=== PATIENT | male | born 1935 | race Caucasian/White ===

== ENCOUNTER 2018-10-20 19:36 | Observation (INO) | payer MEDICARE, BC, OTHER ==
[~2018-10-20] VITALS: Ht 177.8 cm; Wt 53.7 kg
[2018-10-20] MEDS: MORPHINE 2 MG/ML 1ML SYRINGE (J2270) IV ONE ×2 (19:45→21:15)
[2018-10-20 19:59] LABS: BASO % 0.6 % (0.0-1.0); EOS # 0.1 10^3/uL (0.0-0.50); EOS % 1.8 % (0.0-3.0); HEMATOCRIT 32.3 % (42.0-52.0); HEMOGLOBIN 10.6 g/dl (13.5-17.5); LYMPH # 1.2 10^3/uL (1.5-4.5); LYMPH % 22.9 % (24.0-44.0); MEAN CORPUSCULAR HEMOGLOBIN 30.3 pg (27.0-33.0); MEAN CORPUSCULAR HGB CONC 32.8 g/dl (32.0-36.5); MEAN CORPUSCULAR VOLUME 92.3 fl (80.0-96.0); MONO # 0.4 10^3/uL (0.0-0.8); MONO % 8.3 % (0.0-5.0); NEUTROPHILS # 3.4 10^3/uL (1.8-7.7); PLATELET COUNT, AUTOMATED 237 10^3/uL (150-450); WHITE BLOOD COUNT 5.1 10^3/uL (4.0-10.0)
[2018-10-20 20:18] LABS: BLOOD UREA NITROGEN 17 MG/DL (7-18); CARBON DIOXIDE LEVEL 26 MEQ/L (21-32); CHLORIDE LEVEL 108 MEQ/L (98-107); CREATININE FOR GFR 1.03 MG/DL (0.70-1.30); GLOMERULAR FILTRATION RATE > 60.0 (>35); GLUCOSE, FASTING 99 MG/DL (70-100); POTASSIUM SERUM 3.9 MEQ/L (3.5-5.1); SODIUM LEVEL 142 MEQ/L (136-145)
[2018-10-20] MEDS ORDERED: ISOVUE-370 76% 100ML VIAL (Q9967) As Ordered ONE (20:36)
--- NOTE | 2018-10-20 21:29 | REPVR ---
EXAM: CT Chest With Contrast EXAM DATE/TIME: 10/20/2018 8:44 PM CLINICAL HISTORY: 83 years old, male; Injury or trauma; Fall; Initial encounter; Blunt trauma (contusions or hematomas) TECHNIQUE: Axial computed tomography images of the chest with intravenous contrast. All CT scans at this facility use at least one of these dose optimization techniques: automated exposure control; mA and/or kV adjustment per patient size (includes targeted exams where dose is matched to clinical indication); or iterative reconstruction. Coronal and sagittal reformatted images were created and reviewed. CONTRAST: Contrast Material: 100 ml of ISOVUE 370; Contrast Route: IV COMPARISON: No relevant prior studies available. FINDINGS: Lungs: Minimal dependent atelectasis in the lower lobes. Pleural space: Trace right pneumothorax. Heart: Coronary artery calcifications are present. Pulmonary arteries: The main pulmonary artery measures 23 mm. Aorta: The ascending thoracic aorta measures 35 mm. Lymph nodes: Unremarkable. No enlarged lymph nodes. Bones/joints: Trace subcutaneous gas between the anterolateral right 7th and 8th ribs anterolaterally which is viewed with suspicion for a site of occult fracture or costochondral separation. Soft tissues: Unremarkable. Kidneys and ureters: There is a left renal cyst measuring up to 3.5 cm. IMPRESSION: 1. Trace right pneumothorax. 2. Trace cutaneous gas between the right 7th and 8th ribs anterolaterally may reflect an adjacent site of occult fracture. 3. Otherwise negative CT chest Electronically signed by: Karlos Underwood On 10/20/2018 21:29:23 PM
--- NOTE | 2018-10-20 21:39 | REPVR ---
EXAM: CT Abdomen and Pelvis With Contrast EXAM DATE/TIME: 10/20/2018 8:44 PM CLINICAL HISTORY: 83 years old, male; Injury or trauma; Fall; Initial encounter; Blunt; Generalized TECHNIQUE: Axial computed tomography images of the abdomen and pelvis with intravenous contrast. All CT scans at this facility use at least one of these dose optimization techniques: automated exposure control; mA and/or kV adjustment per patient size (includes targeted exams where dose is matched to clinical indication); or iterative reconstruction. Coronal and sagittal reformatted images were created and reviewed. CONTRAST: Contrast Material: 100 ml of ISOVUE 370; Contrast Route: IV COMPARISON: No relevant prior studies available. FINDINGS: Lower thorax: No acute findings. ABDOMEN: Liver: The liver and spleen are intact. No perihepatic or perisplenic fluid collections are identified. Gallbladder and bile ducts: The gallbladder is somewhat contracted with no stones. The gallbladder is somewhat contracted with no stones. Pancreas: Normal. No ductal dilation. Spleen: Normal. No splenomegaly. Adrenals: Normal. No mass. Kidneys and ureters: Nonobstructing bilateral renal calculi. There is a left renal cyst measuring up to 3.2 cm. Stomach and bowel: Normal. No obstruction. No mucosal thickening. Appendix: There are no changes of appendicitis. A normal appendix is not seen. PELVIS: Bladder: Unremarkable as visualized. Reproductive: Unremarkable as visualized. ABDOMEN and PELVIS: Intraperitoneal space: Normal. No free air. No significant fluid collection. Bones/joints: Degenerative interspace narrowing at L4-L5. Displaced fracture of the right 10th rib posteriorly with minimal adjacent foci of gas suggesting an acute process. Trace gas between the right 7th and 8th ribs anterolaterally. Soft tissues: Unremarkable. Vasculature: There is mild calcification of the abdominal aorta with extension into the iliac arteries. Lymph nodes: Normal. No enlarged lymph nodes. IMPRESSION: 1. Nonobstructing bilateral renal calculi. 2. Displaced fracture of the right 10th rib posteriorly with minimal adjacent foci of gas suggesting an acute process. There is minimal gas between the right 7th and 8th ribs anterolaterally suggesting a fracture in the area but none is definitely seen. 3. Otherwise negative CT abdomen/pelvis. The organs are intact and there is no free fluid. Electronically signed by: Karlos Underwood On 10/20/2018 21:38:57 PM
[2018-10-20] MEDS ORDERED: ENTA1TAB PO (22:23)
[2018-10-20] MEDS ORDERED: CARB25TA9 PO (22:23)
[2018-10-20] MEDS ORDERED: ESCI20TA PO (22:23)
[2018-10-20] MEDS ORDERED: ALPR0.5T3 PO (22:23)
[2018-10-20] MEDS ORDERED: NORCO, ANEXSIA 5/325MG TABLET (HYDROcodone/ACETAMINOPHEN) PO PRN ×2 (22:45)
[2018-10-20] MEDS ORDERED: IPRATROPIUM 0.5MG/ALBUTEROL 2.5MG INH SOL UD 3ML (DUONEB)(J7620) NEB PRN (22:45)
[2018-10-20] MEDS ORDERED: ONDANSETRON 4MG/2ML VIAL (J2405) IV PRN (22:45)
[2018-10-20] MEDS ORDERED: QUET1TAB7 PO (23:11)
[2018-10-20] MEDS: MORPHINE 4 MG/ML 1ML VIAL/SYRINGE (J2270) IV PRN (23:32)
[2018-10-20] MEDS: KETOROLAC 30 MG/ML VIAL (J1885) IV SCH (23:32)
[2018-10-21] MEDS: D5W/LR 1,000 ML IV SCH ×2 (01:02→06:18)
[2018-10-21 01:32] VITALS: BP 145/67
[2018-10-21] MEDS: IPRATROPIUM 0.5MG/ALBUTEROL 2.5MG INH SOL UD 3ML (DUONEB)(J7620) NEB SCH ×2 (03:28→08:11)
[2018-10-21 04:00] VITALS: BP 164/77
[2018-10-21 05:14] LABS: MEAN CORPUSCULAR HEMOGLOBIN 30.5 pg (27.0-33.0); MEAN CORPUSCULAR HGB CONC 33.3 g/dl (32.0-36.5); MEAN CORPUSCULAR VOLUME 91.5 fl (80.0-96.0); PLATELET COUNT, AUTOMATED 226 10^3/uL (150-450); RED BLOOD COUNT 3.28 10^6/uL (4.30-6.10); WHITE BLOOD COUNT 4.4 10^3/uL (4.0-10.0)
[2018-10-21 05:36] LABS: BLOOD UREA NITROGEN 16 MG/DL (7-18); CALCIUM LEVEL 7.8 MG/DL (8.8-10.2); CARBON DIOXIDE LEVEL 25 MEQ/L (21-32); CHLORIDE LEVEL 109 MEQ/L (98-107); CREATININE FOR GFR 1.03 MG/DL (0.70-1.30); GLOMERULAR FILTRATION RATE > 60.0 (>35); GLUCOSE, FASTING 94 MG/DL (70-100); POTASSIUM SERUM 3.6 MEQ/L (3.5-5.1); SODIUM LEVEL 142 MEQ/L (136-145)
[2018-10-21] MEDS: KETOROLAC 30 MG/ML VIAL (J1885) IV SCH ×2 (06:18→11:55)
--- NOTE | 2018-10-21 07:37 | ECGEPIP ---
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
--- NOTE | 2018-10-21 07:54 | REP ---
Left ankle four views : There is no fracture or dislocation. Mineralization and joint spaces are normal. There are no calcifications or foreign bodies. Impression: Negative left ankle . Electronically Signed by Vahe Zurita MD 10/21/2018 07:45 A
--- NOTE | 2018-10-21 07:55 | REP ---
Left foot four views : There is no fracture or dislocation. Mineralization and joint spaces are normal. There are no calcifications or foreign bodies. Impression: Negative ? Left foot Electronically Signed by Vahe Zurita MD 10/21/2018 07:46 A
[2018-10-21 08:00] VITALS: BP 172/74
--- NOTE | 2018-10-21 08:18 | REP ---
Chest a sitting AP and lateral views: Comparison is the chest CT of 10/20/2018. On the comparison CT there is a trace of pneumothorax anteriorly on the right. This is not visible on the AP and lateral plain films today. Lung rodriguez otherwise clear. Cardiac size is upper normal. The amna and mediastinum are unremarkable. There is thoracic scoliosis convex right at the lower thoracic level. Impression: No visible pneumothorax on plain films. Lung rodriguez are clear. Scoliosis. Electronically Signed by Vahe Zurita MD 10/21/2018 08:09 A
[2018-10-21] MEDS: MORPHINE 4 MG/ML 1ML VIAL/SYRINGE (J2270) IV PRN (08:30)
[2018-10-21] MEDS ORDERED: ENTACAPONE 200MG TABLET (COMTAN) PO SCH (09:00)
[2018-10-21] MEDS ORDERED: SINEMET 25-100 MG TAB PO SCH (09:00)
[2018-10-21] MEDS ORDERED: PANTOPRAZOLE 40MG TAB (PROTONIX) PO SCH (09:00)
[2018-10-21] MEDS ORDERED: ULTR37.54 PO (12:15)
--- NOTE | 2018-10-21 13:18 | HPE ---
DATE OF ADMISSION: 10/20/2018 REASON FOR ADMISSION: Fall with rib fracture and rib pain and pneumothorax. BRIEF HISTORY OF PRESENT ILLNESS: The patient is an 83-year-old gentleman with Parkinson's disease who was unsteady on his feet, fell against the wall and essentially it was the corner edge of the wall hit him on the side and developed significant pain and discomfort and immediate bruising. He did have some pleuritic-type chest pain, was brought to the emergency room for further workup and evaluation. Presented to the emergency room, was not hypotensive, was not significantly short of breath, mostly complained of pain and discomfort in that area. He was answering questions appropriately. He had extensive evaluation and workup which revealed a small right pneumothorax, was tiny sliver of air and a little bit of air next to the 7th and 8th ribs anterolaterally. He had a CT scan of the abdomen and pelvis that revealed a possible fracture. Foot x-rays were performed and revealed no evidence of abnormality. Otherwise, workup was negative. PAST MEDICAL HISTORY: Significant for: History of Parkinson's disease. MEDICATIONS: Include the following: - alprazolam 0.5 mg t.i.d. p.r.n. anxiety - entacapone 200 mg p.o. q.i.d. - carbidopa/levodopa 25/100 mg 2 tablets p.o. q.i.d. - quetiapine fumarate 25 mg p.o. q.h.s. PHYSICAL EXAMINATION: Reveals a very cachectic appearing 83-year-old male who looks stated age. HEENT is unremarkable. Neck supple without adenopathy. Lungs were clear to auscultation without crackles, wheezes or rhonchi. Heart is regular. Abdomen is soft, nontender, nondistended. No guarding, rebound or peritoneal signs are appreciated. Extremities are warm, well-perfused. I am not seeing any bruising or ecchymosis on his lower extremities. His chest wall does have some ecchymosis on this area and is tender to palpation on the lateral chest wall. IMPRESSION AND PLAN: The patient has a chest wall contusion. There is some question whether he has a fracture or not. His chest CT says that he does not have one. However, this is seen on his abdominal x-ray. At this point, he is acting as though he may have a contusion or possibly a fracture, but in general pain control and respiratory supplementation with oxygen etc. is warranted. Will see how he does overnight. If he gets comfortable we will be able to discharge him to home. At a follow-up visit it is reasonable to obtain a follow-up x-ray after discharge. Otherwise, at this point will see how he does overnight with some pain control.
--- NOTE | 2018-10-21 13:29 | IPN ---
DATE: 10/21/2018 The patient overall has done very well overnight. He has had decreasing pain, discomfort and problems. He has had no significant other complaints overnight and has been tolerating a regular diet this morning. No evidence of pneumothorax was appreciated on followup films this morning. There is suggestion that he has no progression of his pneumothorax. More importantly, there are no comments concerning rib fractures on this study here today. If the patient has ongoing pain going on for 4-6 weeks we may consider reevaluation to see if this truly was a rib fracture and it may take longer to heal, but otherwise I anticipate he should have some continued improvement if was a bruise/contusion of the rib/chest well itself. From his standpoint, I have discussed with him at length and his family that he should be discharged home today with pain control being Tylenol or tramadol and have him follow up with his primary care provider in the next 2-3 weeks. Otherwise, he will continue on his regular medications at home as previously, his alprazolam, carbidopa levodopa, Entacapone and quetiapine fumarate.
== END 2018-10-21 13:20 | disposition home or self-care (01) ==
LOC: M ED 19:36 → M ED INP 22:37 → M ICU 10-21 01:20
PROVIDERS: ADMIT Surgery; ATTEND Surgery
DX: J93.83 Other pneumothorax (principal); S20.219A Contusion of unspecified front wall of thorax, initial encounter; W19.XXXA Unspecified fall, initial encounter; G20 Parkinson's disease; M25.572 Pain in left ankle and joints of left foot; Z79.899 Other long term (current) drug therapy; Y92.9 Unspecified place or not applicable; Z91.81 History of falling; Y93.9 Activity, unspecified; Y99.9 Unspecified external cause status
CPT/HCPCS: 71046; 71260; 73610; 73630; 74177; 80048; 85025; 85027; 93005; 93041; 94640; 94760; 96374; 96375; 96376; 99285; G0378; J1885; J2270; Q9967

== ENCOUNTER 2019-07-22 10:30 | Inpatient (IN) | payer MEDICARE, BC, OTHER ==
[~2019-07-22] VITALS: Ht 180.3 cm; Wt 54.1 kg
[~2019-07-22 10:30] MED LIST: ALPR0.5T3 PO; CARB25TA9 PO; ENTA1TAB PO; ESCI20TA PO; QUET1TAB7 PO; ULTR37.54 PO
[2019-07-22] MEDS ORDERED: CARB25TA12 PO (10:42)
[2019-07-22] MEDS ORDERED: CARB1TAB97 PO (10:42)
[2019-07-22] MEDS ORDERED: ESCI20TA PO (10:42)
[2019-07-22] MEDS ORDERED: MORPHINE 2 MG/ML 1ML VIAL (J2270) IV ONE ×2 (11:00→15:00)
--- NOTE | 2019-07-22 12:15 | REP ---
Four views lumbar spine: 07/22/2019. Indication: Lumbar trauma. Comparison: 10/20/2018 . Findings: There is a predominantly central compression deformity of L4 with minimal loss of craniocaudal height. The osseous structures are diffusely osteopenic. No additional fractures are present. Vertebral body alignment is within anatomical limits. Impression: L4 compression deformity of unknown chronicity. Please correlate with exam. Electronically Signed by Michael Levin DO 07/22/2019 12:07 P
--- NOTE | 2019-07-22 12:26 | REP ---
PELVIS LEFT HIP: Three views. HISTORY: Injury in a fall. FINDINGS: There is diffuse osteopenia. There is a subtle cortical disruption of the medial wall of the pelvis consistent with a nondisplaced superior pubic ramus fracture at the acetabular margin. There is questionable buckling of the superior pubic ramus medially as well. There is some overriding at the inferior pubic ramus consistent with an inferior pubic ramus fracture. No hip fracture is seen. The femoral head is smooth and rounded. There is subtle buckling of the sacrum alar lines on the left question left sacral fracture. IMPRESSION: Suspect nondisplaced fracture of the superior pubic ramus at the acetabular margin. Probable inferior pubic ramus fracture and left lateral sacral fracture . Diffuse osteopenia. No femur fracture seen. Consider pelvic CT. Electronically Signed by Wero Ndiaye MD 07/22/2019 01:05 P
--- NOTE | 2019-07-22 12:54 | REP ---
CT lumbar spine: 08/08/2019. Indication: Lumbar spine trauma. Comparison: 11/06/2018. Technique: Unenhanced axial CT images of the lumbar spine were performed with coronal and sagittal reconstructions provided. Findings: There is no acute fracture, subluxation or dislocation. Disc space narrowing and vacuum disc phenomenon are present at L4/L5 and L5/S1. There is no hemorrhage or additional acute post traumatic sequelae within the spinal canal. No severe areas of spinal canal narrowing are detected by this technique. Multiple bilateral kilo signal renal calculi are present with normal-appearing ureters. Aortoiliac atherosclerosis is present. Impression: No acute osseous injury of the lumbar spine. Electronically Signed by Michael Levin DO 07/22/2019 12:45 P
--- NOTE | 2019-07-22 14:49 | REP ---
CT OF THE BONY PELVIS: REASON: Pain after trauma. The exam was performed without intravenous contrast administration. There are two incomplete fractures involving the left superior pubic ramus. One is at the base near the acetabulum affecting the superior cortex and the other is involving the superior cortex more distally just proximal to the pubic symphysis. The left inferior pubic ramus is also fractured. In the inferior anterior mid left sacrum, there is a slight cortical irregularity. Degenerative change is seen involving the hips, spine, and sacroiliac joints. The bones are demineralized. IMPRESSION: 1. Left hemipelvic fractures and other findings as described above. 2. Slight cortical irregularity left sacrum as described above, insufficient to diagnosis definite fracture at this time. Consider MRI. Electronically Signed by Arcadio Whitley DO 07/22/2019 02:57 P
[2019-07-22] MEDS ORDERED: ENTA1TAB PO (15:06)
[2019-07-22 15:20] LABS: BASO % 0.5 % (0.0-1.0); EOS # 0.2 10^3/uL (0.0-0.5); LYMPH # 0.8 10^3/uL (1.5-5.0); LYMPH % 13.1 % (24.0-44.0); MEAN CORPUSCULAR HEMOGLOBIN 30.1 pg (27.0-33.0); MEAN CORPUSCULAR HGB CONC 33.3 g/dl (32.0-36.5); MEAN CORPUSCULAR VOLUME 90.4 fl (80.0-96.0); MONO # 0.6 10^3/uL (0.0-0.8); MONO % 9.6 % (0.0-5.0); NEUTROPHILS # 4.2 10^3/uL (1.5-8.5); NEUTROPHILS % 73.5 % (36.0-66.0); PLATELET COUNT, AUTOMATED 196 10^3/uL (150-450); RED BLOOD COUNT 3.32 10^6/uL (4.30-6.10); WHITE BLOOD COUNT 5.7 10^3/uL (4.0-10.0)
[2019-07-22 15:49] LABS: ALBUMIN 3.5 GM/DL (3.2-5.2); ALT/SGPT 10 U/L (12-78); BILIRUBIN,DIRECT 0.2 MG/DL (0.0-0.2); BILIRUBIN,TOTAL 0.8 MG/DL (0.2-1.0); BLOOD UREA NITROGEN 16 MG/DL (7-18); CALCIUM LEVEL 8.2 MG/DL (8.8-10.2); CARBON DIOXIDE LEVEL 22 MEQ/L (21-32); CHLORIDE LEVEL 111 MEQ/L (98-107); CREATININE FOR GFR 0.96 MG/DL (0.70-1.30); GLOMERULAR FILTRATION RATE > 60.0 (>35); GLUCOSE, FASTING 99 MG/DL (70-100); POTASSIUM SERUM 3.4 MEQ/L (3.5-5.1); SODIUM LEVEL 141 MEQ/L (136-145)
[2019-07-22] MEDS ORDERED: SINEMET 25-250 TABLET PO SCH (16:00)
[2019-07-22] MEDS ORDERED: PILL CUTTER 1 EACH XX PRN (16:15)
--- NOTE | 2019-07-22 16:25 | HPEPDOC ---
[facility] Medical History & Physical Date of Admission Jul 22, 2019 Date of Service: Jul 22, 2019 History and Physical CHIEF COMPLAINT: FALL HISTORY OF PRESENT ILLNESS: 84 yo male with PMHx Parkinsons presents for lower back pain after fall. Patient states he fell down two days ago, and has had worsening lower back pain since then. He states he has had a few falls in the past month. He is unclear regarding the details of his fall. He is a poor historian. He denies chest pain, shortness of breath, headaches, changes in vi ba, abdominal pain, N/V/D. PAST MEDICAL HISTORY: #Parkinsons ALLERGIES: Please see below. REVIEW OF SYSTEMS: Negative except as per HPI. HOME MEDICATIONS: Please see below. PHYSICAL EXAMINATION: VITAL SIGNS: See below GENERAL APPEARANCE: elderly, frail HEENT: NC/AT, EOMI, bitemporal wasting CARDIOVASCULAR: +S1S2, systolic murmur LUNGS: CTA B/L ABDOMEN: soft, NT, +BS EXTREMITIES: no edema NEUROLOGICAL: no gross focal deficits PSYCHIATRIC: oriented to person, oriented generally to place ([place]) LABORATORY DATA: See below. MICROBIOLOGY: Please see below. ASSESSMENT: 84 yo male with PMHx Parkinson's disease for falls of unclear etiology, found to have pubic rami fracture #falls - telemetry monitoring - echocardiogram - check orthostatics #pubic rami fracture - ortho consultation #Parkinsons - continue home medications #DVT prophylaxis - mechanical Dispo: ortho c/s pending, possible MRI; PT/OT, PFS Vital Signs Vital Signs Date Time Temp Pulse Resp B/P (MAP) Pulse Ox O2 Delivery O2 Flow Rate FiO2 07/22/19 15:05 18 07/22/19 10:47 98.8 77 156/74 (101) 99 Room Air Laboratory Data Labs 24H Laboratory Tests 2 07/22/19 15:08: Immature Granulocyte % (Auto) 0.3, Neutrophils (%) (Auto) 73.5H, Lymphocytes (%) (Auto) 13.1L, Monocytes (%) (Auto) 9.6H, Eosinophils (%) (Auto) 3.0, Basophils (%) (Auto) 0.5, Neutrophils # (Auto) 4.2, Lymphocytes # (Auto) 0.8L, Monocytes # (Auto) 0.6, Eosinophils # (Auto) 0.2, Basophils # (Auto) 0.0, Nucleated Red Blood Cells % (auto) 0.0, Anion Gap 8, Glomerular Filtration Rate > 60.0, Calcium Level 8.2L, Total Bilirubin 0.8, Direct Bilirubin 0.2, Aspartate Amino Transf (AST/SGOT) 23, Alanine Aminotransferase (ALT/SGPT) 10L, Alkaline Phosphatase 94, Total Protein 7.0, Albumin 3.5, Albumin/Globulin Ratio 1.00 CBC/BMP Laboratory Tests 07/22/19 15:08 Home Medications Scheduled Carbidopa/Levodopa (Carbidopa-Levodopa 25-250 Tab) 1 Each Tablet, 0.5 TAB PO TID Carbidopa/Levodopa (Carbidopa-Levo ER 50-200 Tab) 1 Each Tablet.er, 1 TAB PO QHS Entacapone (Entacapone) 200 Mg Tablet, 200 MG PO QID Escitalopram Oxalate (Escitalopram Oxalate) 20 Mg Tablet, 20 MG PO DAILY Quetiapine Fumarate (Quetiapine Fumarate) 25 Mg Tab, 25 MG PO QHS Scheduled PRN Alprazolam (Alprazolam) 0.5 Mg Tab, 0.5 MG PO TID PRN for ANXIETY Allergies Coded Allergies: No Known Allergies (Unverified , 10/20/18) A-FIB/CHADSVASC A-FIB History Current/History of A-Fib/PAF?: No DEDE BARROW MD Jul 22, 2019 16:24
[2019-07-22 16:45] LABS: MAGNESIUM LEVEL 1.8 MG/DL (1.8-2.4)
[2019-07-22] MEDS: SINEMET 25-250 TABLET PO SCH (17:00)
[2019-07-22] MEDS ORDERED: POTASSIUM CHLORIDE 10 MEQ SR TABLET PO ONE (17:00)
--- NOTE | 2019-07-22 20:20 | ECGEPIP ---
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 Order Number: [id number] Reading MD: Ranjana Soto Measurements Intervals [place] Rate: 63 P: 62 NE: 122 QRS: 11 QRSD: 166 T: 52 QT: 492 QTc: 504 Interpretive Statements SINUS RHYTHM LEFT BUNDLE BRANCH BLOCK INCREASED RATE 10/20/18 Electronically Signed on 07-22-2019 20:20:02 EST by Ranjana Soto
[2019-07-22 21:00] VITALS: BP 151/79
[2019-07-22] MEDS: QUEtiapine FUMARATE 25 MG TAB PO SCH (22:30)
[2019-07-22] MEDS: ENTACAPONE 200MG TABLET (COMTAN) PO SCH (22:31)
[2019-07-22] MEDS: SINEMET**CR** 25/100 TABCR PO SCH (22:31)
[2019-07-23] MEDS: ENTACAPONE 200MG TABLET (COMTAN) PO SCH ×5 (00:28→20:05)
[2019-07-23] MEDS: ALPRAZolam 0.5 MG TAB PO PRN ×2 (04:38→12:48)
[2019-07-23 06:00] VITALS: BP 146/75
[2019-07-23 06:28] LABS: HEMATOCRIT 30.5 % (42.0-52.0); HEMOGLOBIN 9.7 g/dl (13.5-17.5); MEAN CORPUSCULAR HEMOGLOBIN 29.4 pg (27.0-33.0); MEAN CORPUSCULAR HGB CONC 31.8 g/dl (32.0-36.5); MEAN CORPUSCULAR VOLUME 92.4 fl (80.0-96.0); PLATELET COUNT, AUTOMATED 197 10^3/uL (150-450); WHITE BLOOD COUNT 5.2 10^3/uL (4.0-10.0)
[2019-07-23 06:59] LABS: ALBUMIN 3.3 GM/DL (3.2-5.2); ALT/SGPT < 6 U/L (12-78); BILIRUBIN,TOTAL 1.3 MG/DL (0.2-1.0); BLOOD UREA NITROGEN 17 MG/DL (7-18); CALCIUM LEVEL 8.3 MG/DL (8.8-10.2); CARBON DIOXIDE LEVEL 22 MEQ/L (21-32); CHLORIDE LEVEL 108 MEQ/L (98-107); CREATININE FOR GFR 1.19 MG/DL (0.70-1.30); GLOMERULAR FILTRATION RATE > 60.0 (>35); GLUCOSE, FASTING 82 MG/DL (70-100); MAGNESIUM LEVEL 1.9 MG/DL (1.8-2.4); POTASSIUM SERUM 3.2 MEQ/L (3.5-5.1); SODIUM LEVEL 139 MEQ/L (136-145); TOTAL PROTEIN 7.1 GM/DL (6.4-8.2)
[2019-07-23] MEDS ORDERED: POTASSIUM CHLORIDE 10 MEQ SR TABLET PO ONE (08:00)
[2019-07-23] MEDS: ESCITALOPRAM OXALATE 10 MG TAB (LEXAPRO) PO SCH (08:17)
[2019-07-23] MEDS: SINEMET 25-250 TABLET PO SCH ×3 (08:17→17:13)
--- NOTE | 2019-07-23 11:45 | CR ---
DATE OF CONSULTATION: 07/23/2019 CHIEF COMPLAINT: Left hip and left buttock pain. HISTORY OF PRESENT ILLNESS: He fell around the 11th. He fell at home. He was near the door. He lives near [place]. He lives with his . He suffers from Parkinson disease. He was brought to the emergency room (ER) where he was evaluated with x-rays, which reflect pubic ramus fractures on the left and suggestion of a sacral fracture nondisplaced, as well as a CT scan that reflected fractures of the pubic ramus superior and inferior as well as cortical irregularity in the sacrum on the left that is likely a nondisplaced fracture there as well in my opinion of both of those reviewed. PAST MEDICAL HISTORY: Includes Parkinson's condition. REVIEW OF SYSTEMS: Is negative except for HPI. He is not complaining of chest pain, shortness of breath, abdominal pain, headaches, change in neurologic status. MEDICATIONS: At home include: - carbidopa levodopa - entacapone - citalopram - quetiapine - alprazolam as needed ALLERGIES: NO KNOWN DRUG ALLERGIES. PHYSICAL EXAMINATION: He is alert, oriented and cooperative. He speaks slowly, but he seems to be well oriented. He talks about his Parkinson disease causing to have some troubles. He is not short of breath. His abdomen is nondistended. Left lower extremity he has some discomfort when trying to roll in the bed. He does not have discomfort with internal and external rotation of the hip itself. Calves soft. Knees no effusion. Leg lengths equal at heel. No peripheral edema. IMPRESSION: 84-year-old with superior and inferior pubic ramus fractures as well as a nondisplaced sacral fracture likely. RECOMMENDATIONS: Mobilization as tolerated with physical therapy. Will require assistive devices. May require consideration for subacute rehabilitation if he is not able to be mobilized over the next couple of days. I talked to the patient about his prognosis, this fracture should heal over time and I anticipate that his pain will improve over the course the next several days significantly. Followup could be in the office in 3 or 4 weeks, sooner if he has got issues.
[2019-07-23] MEDS ORDERED: NS 1,000 ML IV SCH (12:30)
[2019-07-23 14:00] VITALS: BP 144/73
--- NOTE | 2019-07-23 16:09 | IPNPDOC ---
Text Note Date of Service The patient was seen on 07/23/19. NOTE S: Pt examined at bedside. Able to verbalize he fell at home due to losing balance and is having pain at site of pubic fracture. Denies any other symptoms at time of fall: no chest pain, lightheadedness, dizziness, shortness of breath, blurred vision, or loss of consciousness. Denies any other complaints. No issues overnight. No f/c/n/v/abd pain/paresthesia/blood loss. PE: Vitals: see below General exam: A&Ox2- aware of self & location, wrong yr & month, NAD, resting comfortably, speaking full sentences, poor hygiene HEENT: NCAT, EOMI, poor dentition inferiorly, dry mucous membrane, bitemporal wasting Cardiac: distant sounds, RRR, normal S1 & S2, pansystolic murmur Respiratory: CTAB, no w/r/r. No excess muscle use/respiratory distress Abdomen: soft, NT, ND, hypoactive bowel sounds, ribs extruding Extremity: diminished pulses throughout in UE & LE, slightly better on right side of body, trace LE edema, no calf tenderness or swelling Skin: [place], warm, dry, no visible rash. Healing scabs on head and arms MSK: tender to pelvic area. Muscle loss throughout Neuro: mumbled speech with limited history given baseline Parkinson's dementia A/P: 84 yo M with Parkinson's Dementia and recurrent falls presents for another fall from losing balance and found to have fractures of pubic rami & left lateral sacrum with diffuse osteopenia and compression deformity. Recurrent Falls * per pt, he loses his balance often * work with PT. PFS for possible placement * on fall precautions * less likely cardiac: echo, tele Pathological fragility fractures * Imaging with diffuse osteopenia with fracture of pubic rami and left lateral sacrum, along with L4 compression deformity and left hemipelvic fracture s/p fall * On fall precautions. Orthopedic consulted, appreciate input Hypokalemia * supplemented Malnourishment * BMI 16 with muscle wasting * encourage po intake & high protein * IV fluid hydration Depression/anxiety * Continue home Lexapr, Xanax, Seroquel Parkinson's dementia * Continue Sinemet and Comtan DVT ppx: mechanical DISPO: PT/PFS and Ortho. VS,Fishbone, I+O VS, Fishbone, I+O Laboratory Tests 07/22/19 15:08 07/23/19 05:54 07/23/19 05:55 Vital Signs Date Time Temp Pulse Resp B/P (MAP) Pulse Ox O2 Delivery O2 Flow Rate FiO2 07/23/19 06:00 98.2 85 16 146/75 (98) 97 Room Air I&O- Last 24 Hours up to 6 AM 07/23/19 06:00 Intake Total 0 ml Balance 0 ml GME ATTESTATION GME ATTESTATION My faculty preceptor for this patient encounter was physically present during the encounter and was fully available. All aspects of the patient interview, examination, medical decision making process, and medical care plan development were reviewed and approved by the faculty preceptor. The faculty preceptor is aware and concurs with the plan as stated in the body of this note and will attest to such by his/her cosignature. KELLI BENAVIDEZ DO Jul 23, 2019 13:00
[2019-07-23] MEDS: ACETAMINOPHEN TAB 650MG DOSE (2X325MG) PO PRN (17:13)
[2019-07-23] MEDS: SINEMET**CR** 25/100 TABCR PO SCH (20:05)
[2019-07-23] MEDS: QUEtiapine FUMARATE 25 MG TAB PO SCH (20:05)
[2019-07-23 22:00] VITALS: BP 132/63
[2019-07-24 06:00] VITALS: BP 138/66
[2019-07-24 06:43] LABS: HEMATOCRIT 28.5 % (42.0-52.0); HEMOGLOBIN 9.4 g/dl (13.5-17.5); MEAN CORPUSCULAR VOLUME 91.1 fl (80.0-96.0); PLATELET COUNT, AUTOMATED 191 10^3/uL (150-450); RED BLOOD COUNT 3.13 10^6/uL (4.30-6.10); WHITE BLOOD COUNT 4.5 10^3/uL (4.0-10.0)
[2019-07-24 07:00] LABS: BLOOD UREA NITROGEN 19 MG/DL (7-18); CALCIUM LEVEL 8.3 MG/DL (8.8-10.2); CARBON DIOXIDE LEVEL 22 MEQ/L (21-32); CHLORIDE LEVEL 112 MEQ/L (98-107); CREATININE FOR GFR 1.03 MG/DL (0.70-1.30); GLOMERULAR FILTRATION RATE > 60.0 (>35); GLUCOSE, FASTING 81 MG/DL (70-100); POTASSIUM SERUM 3.8 MEQ/L (3.5-5.1); SODIUM LEVEL 141 MEQ/L (136-145)
--- NOTE | 2019-07-24 07:20 | ECHO ---
DATE OF STUDY: 07/23/2019 REFERRING PHYSICIAN: Dr. Carrillo INDICATION: Syncope. HEIGHT: 180 cm. WEIGHT: 54 k. DIMENSIONS: IVS: 0.9 LV: 4.6 LVPW: 0.9 LA: 4.2 Aorta: 2.8 Mitral E wave velocity: 46 A wave: 89 E prime septal: 5.2 E prime lateral: 3.7 FINDINGS: The study is of fair technical quality. The patient is in sinus rhythm with wide QRS complex. Left ventricle is normal size and overall has probably normal contractility. There seems to be a subtle septal wall motion abnormality, I suspect due to underlying conductive system disease. The right ventricle is normal size and systolic function. The left atrium is at least mildly enlarged. The right atrium is probably normal size. The aortic valve is sclerotic, but there is adequate separation of aortic cusps. There are also degenerative abnormalities of the mitral valve with prominent mitral annular calcifications. The tricuspid valve appears normal. The pulmonic valve was not well seen. No pericardial effusion is present. The inferior vena cava was not visualized. The aortic root is normal. The aortic arch and abdominal aorta were not well seen. Doppler interrogation reveals no significant aortic stenosis or insufficiency. Same applies for the mitral valve. There is trace tricuspid insufficiency. Calculated pulmonary artery pressure is likely mildly increased assuming normal central venous pressure. Mitral inflow pattern and tissue Doppler imaging of the mitral annulus revealed grade 1 diastolic dysfunction. CONCLUSIONS: 1. Study is of fair technical quality. 2. Normal LV size with probably normal LV systolic function and grade 1 diastolic dysfunction. 3. Aortic sclerosis, but no significant stenosis. 4. Unable to estimate central venous pressure, but at least mild pulmonary hypertension. COMMENT: Subacute bacterial endocarditis is not recommended. The study does not provide obvious explanation for syncopal event.
[2019-07-24] MEDS: SINEMET 25-250 TABLET PO SCH ×3 (07:28→17:12)
[2019-07-24] MEDS: ESCITALOPRAM OXALATE 10 MG TAB (LEXAPRO) PO SCH (07:29)
[2019-07-24] MEDS: ENTACAPONE 200MG TABLET (COMTAN) PO SCH ×4 (07:29→21:02)
[2019-07-24] MEDS: ALPRAZolam 0.5 MG TAB PO PRN ×2 (07:36→14:54)
--- NOTE | 2019-07-24 11:06 | IPNPDOC ---
Text Note Date of Service The patient was seen on 07/24/19. NOTE Subjective: Patient seen and examined at bedside. No acute overnight events reported, no new medical complaints this morning. Objective: Vitals: see below General: NAD, lying comfortably in bed HEENT: NC/AT, EOMI, poor dentition, bitemporal wasting Lungs: CTA B/L HearT: +S1S2, RRR, systolic murmur Abd: soft, NT, +BS Ext: no edema Neuro: mumbled speech A/P: 84 yo M with Parkinson's Dementia and recurrent falls presents for another fall from losing balance and found to have fractures of pubic rami & left lateral sacrum with diffuse osteopenia and compression deformity. #Recurrent Falls * per pt, he loses his balance often * work with PT. PFS for possible placement * on fall precautions * less likely cardiac: no events on tele #Pathological fragility fractures * Imaging with diffuse osteopenia with fracture of pubic rami and left lateral sacrum, along with L4 compression deformity and left hemipelvic fracture s/p fall * On fall precautions. Orthopedic consulted, appreciate input #Hypokalemia * supplemented #Malnourishment * BMI 16 with muscle wasting * encourage po intake & high protein * IV fluid hydration #Depression/anxiety * Continue home Lexapr, Xanax, Seroquel #Parkinson's dementia * Continue Sinemet and Comtan #DVT ppx: mechanical DISPO: PT/PFS, possible placement VS,Fishbone, I+O VS, Fishbone, I+O Laboratory Tests 07/24/19 05:55 Vital Signs Date Time Temp Pulse Resp B/P (MAP) Pulse Ox O2 Delivery O2 Flow Rate FiO2 07/24/19 06:00 97.5 62 16 138/66 (90) 97 Room Air I&O- Last 24 Hours up to 6 AM 07/24/19 06:00 Intake Total 1720 ml Output Total 400 ml Balance 1320 ml DEDE BARROW MD Jul 24, 2019 11:05
[2019-07-24] MEDS: ACETAMINOPHEN TAB 650MG DOSE (2X325MG) PO PRN (12:11)
[2019-07-24 14:00] VITALS: BP_SYST 125; BP_SYST 129; BP_SYST 131; BP_SYST 134; BP_DIAS 71; BP_DIAS 73; BP_DIAS 74
[2019-07-24] MEDS: NAPROXEN 250 MG TAB PO PRN (15:08)
[2019-07-24] MEDS: SINEMET**CR** 25/100 TABCR PO SCH (21:02)
[2019-07-24] MEDS: QUEtiapine FUMARATE 25 MG TAB PO SCH (21:02)
[2019-07-24 22:00] VITALS: BP 139/73
[2019-07-25 06:00] VITALS: BP 140/76
[2019-07-25 06:05] VITALS: BP 146/75
[2019-07-25 06:10] VITALS: BP 156/76
[2019-07-25 06:23] LABS: HEMATOCRIT 30.9 % (42.0-52.0); MEAN CORPUSCULAR HEMOGLOBIN 29.7 pg (27.0-33.0); MEAN CORPUSCULAR HGB CONC 32.4 g/dl (32.0-36.5); MEAN CORPUSCULAR VOLUME 91.7 fl (80.0-96.0); PLATELET COUNT, AUTOMATED 223 10^3/uL (150-450); RED BLOOD COUNT 3.37 10^6/uL (4.30-6.10); WHITE BLOOD COUNT 4.1 10^3/uL (4.0-10.0)
[2019-07-25 06:53] LABS: ALBUMIN 3.2 GM/DL (3.2-5.2); ALT/SGPT 11 U/L (12-78); BILIRUBIN,DIRECT 0.2 MG/DL (0.0-0.2); BILIRUBIN,TOTAL 0.8 MG/DL (0.2-1.0); BLOOD UREA NITROGEN 19 MG/DL (7-18); CALCIUM LEVEL 8.3 MG/DL (8.8-10.2); CARBON DIOXIDE LEVEL 24 MEQ/L (21-32); CHLORIDE LEVEL 110 MEQ/L (98-107); CREATININE FOR GFR 1.01 MG/DL (0.70-1.30); GLOMERULAR FILTRATION RATE > 60.0 (>35); GLUCOSE, FASTING 88 MG/DL (70-100); POTASSIUM SERUM 3.8 MEQ/L (3.5-5.1); SODIUM LEVEL 141 MEQ/L (136-145)
[2019-07-25] MEDS: NAPROXEN 250 MG TAB PO PRN (08:48)
[2019-07-25] MEDS: ESCITALOPRAM OXALATE 10 MG TAB (LEXAPRO) PO SCH (08:48)
[2019-07-25] MEDS: ENTACAPONE 200MG TABLET (COMTAN) PO SCH ×2 (08:48→13:30)
[2019-07-25] MEDS: ALPRAZolam 0.5 MG TAB PO PRN (08:49)
[2019-07-25] MEDS: SINEMET 25-250 TABLET PO SCH ×2 (08:49→13:30)
[2019-07-25] MEDS: ACETAMINOPHEN TAB 650MG DOSE (2X325MG) PO PRN (13:30)
[2019-07-25] MEDS ORDERED: NAPR250T4 PO (14:07)
--- NOTE | 2019-07-25 14:15 | DS.PDOC ---
Discharge Summary General Date of Admission Jul 22, 2019 at 16:16 Date of Discharge 07/25/19 Discharge Summary CHIEF COMPLAINT: FALL Final diagnosis 1. Pubic rami fracture 2. Fall 3. Parkinsonism HISTORY OF PRESENT ILLNESS: 84 yo male with PMHx Parkinsons presents for lower back pain after fall. Patient states he fell down two days ago, and has had worsening lower back pain since then. He states he has had a few falls in the past month. He is unclear regarding the details of his fall. He is a poor hi storian. He denies chest pain, shortness of breath, headaches, changes in vision, abdominal pain, N/V/D. he was diagnosed with superior and inferior pubic ramus fractures as well as a nondisplaced sacral fracture. He was evaluated by orthopedics and they recommended Mobilization as tolerated with physical therapy and assistive devices. As per Ortho this fracture should heal over time and his pain will improve over the course the next several days significantly. Followup could be in the office in 3 or 4 weeks, sooner if he has got. He was seen by PT, OT and was accepted for rehabilitation and will be discharged to. He'll be continued on all the home medications and naproxen for pain control when necessary. Vitals: see below General: NAD, lying comfortably in bed HEENT: NC/AT, EOMI, poor dentition, bitemporal wasting Lungs: CTA B/L HearT: +S1S2, RRR, systolic murmur Abd: soft, NT, +BS Ext: no edema Neuro: mumbled speech Medications. As per discharge reconciliation medication list Activity as tolerated Diet. 2 g sodium diet Follow-up appointments. PCP in 1 week, orthopedics 2 weeks Condition on discharge. Medically optimized for discharge Discharge disposition: Rehabilitation Total time spent on this discharge including coordination of care, review of chart documentation and extubation contact is around 35 minutes Vital Signs/I&Os Vital Signs Date Time Temp Pulse Resp B/P (MAP) Pulse Ox O2 Delivery O2 Flow Rate FiO2 07/25/19 06:10 82 156/76 (102) 07/24/19 22:00 98.4 16 98 Room Air I&O- Last 24 Hours up to 6 AM 07/25/19 06:00 Intake Total 760 ml Output Total 0 ml Balance 760 ml Laboratory Data Labs 24H Laboratory Tests 2 07/25/19 05:57: Nucleated Red Blood Cells % (auto) 0.0, Anion Gap 7L, Glomerular Filtration Rate > 60.0, Calcium Level 8.3L, Total Bilirubin 0.8, Direct Bilirubin 0.2, Aspartate Amino Transf (AST/SGOT) 33, Alanine Aminotransferase (ALT/SGPT) 11L, Alkaline Phosphatase 92, Total Protein 7.0, Albumin 3.2, Albumin/Globulin Ratio 0.84L CBC/BMP Laboratory Tests 07/25/19 05:57 Discharge Medications Scheduled Carbidopa/Levodopa (Carbidopa-Levodopa 25-250 Tab) 1 Each Tablet, 0.5 TAB PO TID, (Reported) Carbidopa/Levodopa (Carbidopa-Levo ER 50-200 Tab) 1 Each Tablet.er, 1 TAB PO QHS, (Reported) Entacapone (Entacapone) 200 Mg Tablet, 200 MG PO QID, (Reported) Escitalopram Oxalate (Escitalopram Oxalate) 20 Mg Tablet, 20 MG PO DAILY, (Reported) Quetiapine Fumarate (Quetiapine Fumarate) 25 Mg Tab, 25 MG PO QHS, (Reported) Scheduled PRN Alprazolam (Alprazolam) 0.5 Mg Tab, 0.5 MG PO TID PRN for ANXIETY, (Reported) Naproxen (Naproxen) 250 Mg Tablet, 250 MG PO Q12HP PRN for PAIN OR DISCOMFORT Allergies Coded Allergies: No Known Allergies (Unverified , 10/20/18) GERTRUDE DUEÑAS MD Jul 25, 2019 14:10
== END 2019-07-25 14:38 | DRG 543 ==
LOC: M ED 10:30 → EDBD 10:30 → M ED INP 16:16 → M MSPAV 20:34
PROVIDERS: ADMIT Internal Medicine; ATTEND Internal Medicine
DX: M84.454A Pathological fracture, pelvis, initial encounter for fracture (principal); Z68.1 Body mass index [BMI] 19.9 or less, adult; E46 Unspecified protein-calorie malnutrition; G20 Parkinson's disease; E87.6 Hypokalemia; R29.6 Repeated falls; F32.9 Major depressive disorder, single episode, unspecified; F41.9 Anxiety disorder, unspecified; M84.48XA Pathological fracture, other site, initial encounter for fracture; Z79.899 Other long term (current) drug therapy

== ENCOUNTER 2019-07-25 14:39 | Inpatient (IN) | payer MEDICARE, BC, OTHER ==
[~2019-07-25] VITALS: Ht 185.4 cm; Wt 54.1 kg
[~2019-07-25 14:39] MED LIST changes: +CARB1TAB97 PO; +CARB25TA12 PO; +NAPR250T4 PO
[2019-07-25 15:30] VITALS: BP 166/81
[2019-07-25] MEDS ORDERED: ALPRAZolam 0.25 MG TAB PO PRN (15:30)
[2019-07-25] MEDS: SINEMET 25-250 TABLET PO SCH (18:25)
[2019-07-25] MEDS: ENTACAPONE 200MG TABLET (COMTAN) PO SCH ×2 (18:25→21:43)
[2019-07-25 20:00] VITALS: BP 155/80
[2019-07-25] MEDS: DOCUSATE SODIUM 100 MG CAP PO SCH (21:00)
[2019-07-25] MEDS ORDERED: SENNA 8.6 MG TAB (SENOKOT) PO SCH (21:00)
[2019-07-25] MEDS: SINEMET**CR** 25/100 TABCR PO SCH (21:41)
[2019-07-25] MEDS: QUEtiapine FUMARATE 25 MG TAB PO SCH (21:41)
[2019-07-25] MEDS: ACETAMINOPHEN 500 MG TAB PO SCH (21:42)
[2019-07-25] MEDS: PROPRANOLOL 10 MG TAB PO SCH (21:43)
[2019-07-26 06:00] VITALS: BP 145/80
[2019-07-26 07:26] LABS: BASO % 0.7 % (0.0-1.0); EOS # 0.3 10^3/uL (0.0-0.5); HEMATOCRIT 32.1 % (42.0-52.0); HEMOGLOBIN 10.6 g/dl (13.5-17.5); LYMPH # 1.1 10^3/uL (1.5-5.0); MEAN CORPUSCULAR HEMOGLOBIN 30.1 pg (27.0-33.0); MEAN CORPUSCULAR VOLUME 91.2 fl (80.0-96.0); MONO # 0.4 10^3/uL (0.0-0.8); MONO % 9.2 % (0.0-5.0); NEUTROPHILS # 2.7 10^3/uL (1.5-8.5); NEUTROPHILS % 59.7 % (36.0-66.0); PLATELET COUNT, AUTOMATED 254 10^3/uL (150-450); RED BLOOD COUNT 3.52 10^6/uL (4.30-6.10); WHITE BLOOD COUNT 4.6 10^3/uL (4.0-10.0)
[2019-07-26 07:51] LABS: ALBUMIN 3.3 GM/DL (3.2-5.2); ALT/SGPT 7 U/L (12-78); BILIRUBIN,TOTAL 0.7 MG/DL (0.2-1.0); BLOOD UREA NITROGEN 22 MG/DL (7-18); CALCIUM LEVEL 8.3 MG/DL (8.8-10.2); CARBON DIOXIDE LEVEL 24 MEQ/L (21-32); CHLORIDE LEVEL 111 MEQ/L (98-107); CREATININE FOR GFR 1.02 MG/DL (0.70-1.30); GLOMERULAR FILTRATION RATE > 60.0 (>35); GLUCOSE, FASTING 96 MG/DL (70-100); POTASSIUM SERUM 4.1 MEQ/L (3.5-5.1); SODIUM LEVEL 140 MEQ/L (136-145); TOTAL PROTEIN 7.3 GM/DL (6.4-8.2)
[2019-07-26] MEDS: DOCUSATE SODIUM 100 MG CAP PO SCH (09:00)
--- NOTE | 2019-07-26 09:01 | HPEPDOC ---
[facility] Medical History & Physical Date of Admission Jul 26, 2019 Date of Service: Jul 26, 2019 History and Physical CHIEF COMPLAINT: FALL HISTORY OF PRESENT ILLNESS: 84 yo male with PMHx Parkinsons presents for lower back pain after fall. Patient states he fell down two days ago, and has had worsening lower back pain since then. He states he has had a few falls in the past month. He is unclear regarding the details of his fall. He is a poor historian. He denies chest pain, shortness of breath, headaches, changes in vision, abdominal pain, N/V/D. he was diagnosed with superior and inferior pubic ramus fractures as well as a nondisplaced sacral fracture. He was evaluated by orthopedics and they recommended Mobilization as tolerated with physical therapy and assistive devices. As per Ortho this fracture should heal over time and his pain will improve over the course the next several days significantly. Followup could be in the office in 3 or 4 weeks, sooner if he has got. He was seen by PT, OT and was accepted for rehabilitation . He'll be continued on all the home medications and naproxen for pain control when necessary. PAST MEDICAL HISTORY: #Parkinsons ALLERGIES: Please see below. REVIEW OF SYSTEMS: Negative except as per HPI. HOME MEDICATIONS: Please see below. PHYSICAL EXAMINATION: VITAL SIGNS: See below GENERAL APPEARANCE: elderly, frail HEENT: NC/AT, EOMI, bitemporal wasting CARDIOVASCULAR: +S1S2, systolic murmur LUNGS: CTA B/L ABDOMEN: soft, NT, +BS EXTREMITIES: no edema NEUROLOGICAL: no gross focal deficits PSYCHIATRIC: oriented to person, oriented generally to place ([place]) LABORATORY DATA: See below. ASSESSMENT: 84 yo male with PMHx Parkinson's disease for falls, found to have pubic rami fracture 1: falls with pubic rami fracture: evaluated by orthopedics and they recommended Mobilization as tolerated with physical therapy and assistive devices. As per Ortho this fracture should heal over time and his pain will improve over the c ourse the next several days significantly. Followup could be in there office in 3 or 4 weeks. Cont rehabilitation . He'll be continued on all the home medications and naproxen for pain control when necessary. 2: Parkinsons : continue home medications DVT prophylaxis Fall precautions Vital Signs Vital Signs Date Time Temp Pulse Resp B/P (MAP) Pulse Ox O2 Delivery O2 Flow Rate FiO2 07/26/19 06:00 98.2 90 17 145/80 (101) 96 Room Air Laboratory Data Labs 24H Laboratory Tests 2 07/26/19 05:41: Urine Color ADIA, Urine Appearance CLEAR, Urine pH 5.0, Urine Specific [place] 1.018, Urine Protein NEGATIVE, Urine Glucose (UA) NEGATIVE, Urine Ketones NEGATIVE, Urine Blood 1+H, Urine Nitrite NEGATIVE, Urine Bilirubin NEGATIVE, Urine Urobilinogen 0.2, Urine Leukocyte Esterase NEGATIVE, Urine WBC (Auto) 1, Urine RBC (Auto) 7H, Urine Hyaline Casts (Auto) 0, Urine Bacteria (Auto) NEGATIVE, Urine Squamous Epithelial Cells 0, Urine Sperm (Auto) SMALLH 07/26/19 06:54: Immature Granulocyte % (Auto) 0.4, Neutrophils (%) (Auto) 59.7, Lymphocytes (%) (Auto) 23.0L, Monocytes (%) (Auto) 9.2H, Eosinophils (%) (Auto) 7.0H, Basophils (%) (Auto) 0.7, Neutrophils # (Auto) 2.7, Lymphocytes # (Auto) 1.1L, Monocytes # (Auto) 0.4, Eosinophils # (Auto) 0.3, Basophils # (Auto) 0.0, Nucleated Red Blood Cells % (auto) 0.0, Anion Gap 5L, Glomerular Filtration Rate > 60.0, Calcium Level 8.3L, Total Bilirubin 0.7, Aspartate Amino Transf (AST/SGOT) 28, Alanine Aminotransferase (ALT/SGPT) 7L, Alkaline Phosphatase 91, Total Protein 7.3, Albumin 3.3, Albumin/Globulin Ratio 0.83L CBC/BMP Laboratory Tests 07/26/19 06:54 Home Medications Scheduled Carbidopa/Levodopa (Carbidopa-Levodopa 25-250 Tab) 1 Each Tablet, 0.5 TAB PO TID Carbidopa/Levodopa (Carbidopa-Levo ER 50-200 Tab) 1 Each Tablet.er, 1 TAB PO QHS Entacapone (Entacapone) 200 Mg Tablet, 200 MG PO QID Escitalopram Oxalate (Escitalopram Oxalate) 20 Mg Tablet, 20 MG PO DAILY Quetiapine Fumarate (Quetiapine Fumarate) 25 Mg Tab, 25 MG PO QHS Scheduled PRN Alprazolam (Alprazolam) 0.5 Mg Tab, 0.5 MG PO TID PRN for ANXIETY Naproxen (Naproxen) 250 Mg Tablet, 250 MG PO Q12HP PRN for PAIN OR DISCOMFORT Allergies Coded Allergies: No Known Allergies (Unverified , 10/20/18) A-FIB/CHADSVASC A-FIB History Current/History of A-Fib/PAF?: No Current PO Anticoag Therapy: No GERTRUDE DUEÑAS MD Jul 26, 2019 09:01
[2019-07-26] MEDS: SINEMET 25-250 TABLET PO SCH ×3 (09:19→17:09)
[2019-07-26] MEDS: PANTOPRAZOLE 40MG TAB (PROTONIX) PO SCH (09:19)
[2019-07-26] MEDS: ENTACAPONE 200MG TABLET (COMTAN) PO SCH ×4 (09:19→21:47)
[2019-07-26] MEDS: PROPRANOLOL 10 MG TAB PO SCH ×3 (09:19→21:00)
[2019-07-26] MEDS: HEPARIN SOD (PORCINE) 5000 UNITS/ML VIAL SQ SCH ×2 (09:20→21:46)
[2019-07-26] MEDS: ESCITALOPRAM OXALATE 10 MG TAB (LEXAPRO) PO SCH (09:20)
[2019-07-26] MEDS: ACETAMINOPHEN 500 MG TAB PO SCH ×3 (09:20→22:30)
--- NOTE | 2019-07-26 09:46 | HPEPDOC ---
General Date of Admission Jul 25, 2019 at 14:50 Date of Service: Jul 25, 2019 Time of Admission order: 15:38 Geometry Professor Note SOURCE OF ADMISSION INFORMATION: [facility] records and patient CHIEF COMPLAINT: Parkinson's with fall and pelvic fracture HISTORY OF PRESENT ILLNESS: 84M pmh Parkinson, low back pain who fell at home with unknown LOC and presented to [facility] ED on 07-22-19 with difficulty walking. He was placed on telemetry and pelvic X-ray revealed, nondisplaced fracture of the superior pubic ramus at the acetabular margin. Probable inferior pubic ramus fracture and left lateral sacral fracture. Diffuse osteopenia. No femur fracture seen CT pelvis showed, two incomplete fractures involving the left superior pubic ramus. One is at the base near the acetabulum affecting the superior cortex and the other is involving the superior cortex more distally just proximal to the pubic symphysis. The left inferior pubic ramus is also fractured. In the inferior anterior mid left sacrum, there is a slight cortical irregularity He was evaluated by orthopedics who did not recommend surgical intervention and to be weight bearing as tolerated. Patient had episodes of delirium with sundowning. He was evaluated by therapy and found to be below his prior level of function in mobility and ADLs and deemed medically appropriate for discharge to ARU on 07-25-19. REVIEW OF SYSTEMS: The following is a completed review of systems and has been reviewed. Review of systems otherwise unremarkable. PAIN: Patient self reports +pelvic pain EYES: No recent vision changes EARS, NOSE, & THROAT: No throat pain, or dysphagia, or rhinorrhea CARDIOVASCULAR: Denies chest pain or palpitations PULMONARY: Denies shortness of breath GASTROINTESTINAL: Denies constipation/diarrhea GENITOURINARY:+dysuria MUSCULOSKELETAL: pelvic fracture NEUROLOGICAL:+parkisnons HEMATOLOGICAL: difficult to assess SKIN: denies rash PSYCHIATRIC: + confused All other review of systems found to be negative. PAST MEDICAL HISTORY: as per HPI ALLERGIES: Please see below. MEDICATIONS: Please see below. SOCIAL HISTORY: no etoh, smoking, illicit drugs DIET: high protein, fluid restrict PHYSICAL EXAMINATION: VITAL SIGNS: Please see below. GENERAL: Pleasant and cooperative. No acute distress. thin HEENT: PERRL. Extraocular movements intact. Clear conjunctiva CARDIOVASCULAR: Regular rate and rhythm. No murmurs, rubs, or gallops LUNGS: Clear to auscultation bilaterally. No wheezes. No rhonchi ABDOMEN: Soft, nontender, nondistended. Positive bowel sounds. Normal active bowel sounds NEUROLOGICAL: disoriented to place and time, able to identify himself Cranial nerves II through XII grossly intact. Sensation grossly intact in all 4 limbs EXTREMITIES: 5\5 strength bilateral upper extremities. 5\5 strength right lower extremity. 5/5 strength in left lower extremity. SKIN: intact LABORATORY DATA: Please see below. IMAGING:Imaging documentation personally reviewed by record FUNCTIONAL STATUS: Premorbid: Modified Independent with all activities of daily life as well as mobility with RW On Admission: Max for bed mobility and functional transfers, contact guard for ambulation with RW GOALS: Mod-I household distances with RW, functional transfers, dressing, and supervision for bathing, medical optimization, assess for DME needs ASSESSMENT:84-year-old M with past medical history of Parkinson's who presents status post fall with pelvic fractures PLAN: 1. Rehab- PT- advance gait training, consider LSVT Big program, fall recovery OT- advance ADLs, maintain ROM/stretch/strengthen bilat UE 2. Neuro: parkinsons c/u Sinemet and Entacapone- parkinson's with gait impairment, symptoms exacerbated in setting of pelvic fracture -delirium worse at night- c/u Seroquel -agitation- will order propranolol -f/u with neuro upon d/c 3. Ortho: s/p fall with left superior/inferior rami and sacral fracture, WBATm, ortho consulted 4. Cardiac: recent ECHO with grade 1 diastolic CHF otherwise no known cardiac hx- medicine consulted to assist - fluid restrict 1800cc 5. Resp: encourage incentive spirometry, monitor for infection 6. GI ppx: protonix 7. DVT ppx: heparin and TEDs 8. : monitor PVRs, will order UA as patient complaining of burning with urination 9. Dispo: TBD POST ADMISSION PHYSICIAN EVALUATION: Medical and functional status: Description of medical status, medical as sessment: As above. Rehabilitation diagnosis and current and prior cold morbid medical conditions as above. Risk of complications and plans to mitigate them as above. Description of functional status current status is as above. Prior status as above. Status compared to preadmission: There are no clinically significant differences between the patient's current status and the information described on the preadmission screening document. Treatment plan anticipated: Treatment plan is as described above. Required disciplines including physical therapy, occupational therapy, others as noted above Intensity of services: 3 hours a day, 6 days a week. Special considerations: There are no specific special or safety considerations that would likely preclude immediate implementation of an intensive r ehabilitation program or subsequently influence the plan of care. ATTESTATION: Considering all the information above, it is my best judgment that this patient requires intensive rehabilitation therapy as described above and an inpatient hospital environment due to the complexity of nursing, medical, and rehabilitation needs required by the patient. Furthermore, this patient can reasonably be expected to participate in an benefit from an inpatient rehabilitation stay with an interdisciplinary team approach to the delivery of rehabilitation care under the direction and supervision of rehabilitation physician. PROGNOSIS: Good ESTIMATED LENGTH OF STAY:14-18 days. PROJECTED DISCHARGE DESTINATION: Home with family support and any durable medical equipment required to increase functional safety and mobility TIME SPENT COUNSELING AND COORDINATING INITIAL CARE: Greater than 70 minutes. Vital Signs Vital Sign - Last 24 Hours 07/25/19 07/25/19 07/25/19 07/26/19 15:30 20:00 21:43 06:00 Temp 98.6 98.8 98.2 Pulse 93 91 91 90 Resp 18 17 17 B/P (MAP) 166/81 (109) 155/80 (105) 155/80 145/80 (101) Pulse Ox 96 98 96 O2 Delivery Room Air Room Air Room Air Laboratory Data CBC/BMP Laboratory Tests 07/26/19 06:54 Labs 24H Laboratory Tests 2 07/26/19 05:41: Urine Color ADIA, Urine Appearance CLEAR, Urine pH 5.0, Urine Specific [place] 1.018, Urine Protein NEGATIVE, Urine Glucose (UA) NEGATIVE, Urine Ketones NEGATIVE, Urine Blood 1+H, Urine Nitrite NEGATIVE, Urine Bilirubin NEGATIVE, Urine Urobilinogen 0.2, Urine Leukocyte Esterase NEGATIVE, Urine WBC (Auto) 1, Urine RBC (Auto) 7H, Urine Hyaline Casts (Auto) 0, Urine Bacteria (Auto) NEGATIVE, Urine Squamous Epithelial Cells 0, Urine Sperm (Auto) SMALLH 07/26/19 06:54: Immature Granulocyte % (Auto) 0.4, Neutrophils (%) (Auto) 59.7, Lymphocytes (%) (Auto) 23.0L, Monocytes (%) (Auto) 9.2H, Eosinophils (%) (Auto) 7.0H, Basophils (%) (Auto) 0.7, Neutrophils # (Auto) 2.7, Lymphocytes # (Auto) 1.1L, Monocytes # (Auto) 0.4, Eosinophils # (Auto) 0.3, Basophils # (Auto) 0.0, Nucleated Red Blood Cells % (auto) 0.0, Anion Gap 5L, Glomerular Filtration Rate > 60.0, Calcium Level 8.3L, Total Bilirubin 0.7, Aspartate Amino Transf (AST/SGOT) 28, Alanine Aminotransferase (ALT/SGPT) 7L, Alkaline Phosphatase 91, Total Protein 7.3, Albumin 3.3, Albumin/Globulin Ratio 0.83L Home Medications Scheduled Carbidopa/Levodopa (Carbidopa-Levodopa 25-250 Tab) 1 Each Tablet, 0.5 TAB PO TID, (Reported) Carbidopa/Levodopa (Carbidopa-Levo ER 50-200 Tab) 1 Each Tablet.er, 1 TAB PO QHS, (Reported) Entacapone (Entacapone) 200 Mg Tablet, 200 MG PO QID, (Reported) Escitalopram Oxalate (Escitalopram Oxalate) 20 Mg Tablet, 20 MG PO DAILY, (Reported) Quetiapine Fumarate (Quetiapine Fumarate) 25 Mg Tab, 25 MG PO QHS, (Reported) Scheduled PRN Alprazolam (Alprazolam) 0.5 Mg Tab, 0.5 MG PO TID PRN for ANXIETY, (Reported) Naproxen (Naproxen) 250 Mg Tablet, 250 MG PO Q12HP PRN for PAIN OR DISCOMFORT Allergies Coded Allergies: No Known Allergies (Unverified , 10/20/18) A-FIB/CHADSVASC A-FIB History Current/History of A-Fib/PAF?: No KRISTIE BUENROSTRO MD Jul 26, 2019 09:46
--- NOTE | 2019-07-26 09:58 | IPNPDOC ---
PM&R Progress Note DATE OF SERVICE: Jul 26, 2019 Sales Analyst Progress Note Subjective: Patient reporting he knows he is in a hospital in [place], knows the president, but thinks it is 2098. He denies having pain. REVIEW OF SYSTEMS: The following is a completed review of systems and has been reviewed. Review of systems otherwise unremarkable. PAIN: Patient self reports +pelvic pain EYES: No recent vision changes EARS, NOSE, & THROAT: No throat pain, or dysphagia, or rhinorrhea CARDIOVASCULAR: Denies chest pain or palpitations PULMONARY: Denies shortness of breath GASTROINTESTINAL: Denies constipation/diarrhea GENITOURINARY:+dysuria MUSCULOSKELETAL: pelvic fracture NEUROLOGICAL:+Parkinson HEMATOLOGICAL: difficult to assess SKIN: denies rash PSYCHIATRIC: + confused All other review of systems found to be negative. PHYSICAL EXAMINATION: VITAL SIGNS: Please see below. GENERAL: Pleasant and cooperative. No acute distress. thin HEENT: PERRL. Extraocular movements intact. Clear conjunctiva CARDIOVASCULAR: Regular rate and rhythm. No murmurs, rubs, or gallops LUNGS: Clear to auscultation bilaterally. No wheezes. No rhonchi ABDOMEN: Soft, nontender, nondistended. Positive bowel sounds. Normal active bowel sounds NEUROLOGICAL: disoriented to place and time, able to identify himself Cranial nerves II through XII grossly intact. Sensation grossly intact in all 4 limbs EXTREMITIES: 5\5 strength bilateral upper extremities. 5\5 strength right lower extremity. 5/5 strength in left lower extremity. ASSESSMENT:84-year-old M with past medical history of Parkinson's who presents status post fall with pelvic fractures PLAN: 1. Rehab- PT- advance gait training, consider LSVT Big program, fall recovery OT- advance ADLs, maintain ROM/stretch/strengthen bilat UE MOBILE PAINT SPECIALIST ordered for possible dysphagia and cog eval 2. Neuro: parkinsons c/u Sinemet and Entacapone- parkinson's with gait impairment, symptoms exacerbated in setting of pelvic fracture -delirium worse at night- c/u Seroquel -agitation-c/u propranolol -f/u with neuro upon d/c 3. Ortho: s/p fall with left superior/inferior rami and sacral fracture, WBAT, ortho consulted 4. Cardiac: recent ECHO with grade 1 diastolic CHF otherwise no known cardiac hx- medicine consulted to assist - fluid restrict 1800cc 5. Resp: encourage incentive spirometry, monitor for infection 6. GI ppx: protonix 7. DVT ppx: heparin and TEDs 8. : monitor PVRs, UA negative 9. Nutrition: high caloric diet 9. Dispo: TBD Allergies Coded Allergies: No Known Allergies (Unverified , 10/20/18) Vital Signs Vital Signs Date Time Temp Pulse Resp B/P (MAP) Pulse Ox O2 Delivery O2 Flow Rate FiO2 07/26/19 06:00 98.2 90 17 145/80 (101) 96 Room Air Laboratory Data CBC/BMP Laboratory Tests 07/26/19 06:54 Labs 24H Laboratory Tests 2 07/26/19 05:41: Urine Color ADIA, Urine Appearance CLEAR, Urine pH 5.0, Urine Specific [place] 1.018, Urine Protein NEGATIVE, Urine Glucose (UA) NEGATIVE, Urine Ketones NEGATIVE, Urine Blood 1+H, Urine Nitrite NEGATIVE, Urine Bilirubin NEGATIVE, Urine Urobilinogen 0.2, Urine Leukocyte Esterase NEGATIVE, Urine WBC (Auto) 1, Urine RBC (Auto) 7H, Urine Hyaline Casts (Auto) 0, Urine Bacteria (Auto) NEGATIVE, Urine Squamous Epithelial Cells 0, Urine Sperm (Auto) SMALLH 07/26/19 06:54: Immature Granulocyte % (Auto) 0.4, Neutrophils (%) (Auto) 59.7, Lymphocytes (%) (Auto) 23.0L, Monocytes (%) (Auto) 9.2H, Eosinophils (%) (Auto) 7.0H, Basophils (%) (Auto) 0.7, Neutrophils # (Auto) 2.7, Lymphocytes # (Auto) 1.1L, Monocytes # (Auto) 0.4, Eosinophils # (Auto) 0.3, Basophils # (Auto) 0.0, Nucleated Red Blood Cells % (auto) 0.0, Anion Gap 5L, Glomerular Filtration Rate > 60.0, Calcium Level 8.3L, Total Bilirubin 0.7, Aspartate Amino Transf (AST/SGOT) 28, Alanine Aminotransferase (ALT/SGPT) 7L, Alkaline Phosphatase 91, Total Protein 7.3, Albumin 3.3, Albumin/Globulin Ratio 0.83L Current Medications Current Medications Current Medications Medications (Trade) Dose Ordered Sig/Blossom Route PRN Reason Start Time Stop Time Status Last Admin Dose Admin Acetaminophen (Tylenol Tab) 1,000 mg TID PO 07/25/19 21:00 07/26/19 09:20 Alprazolam (Xanax) 0.25 mg TID PRN PO ANXIETY 07/25/19 15:30 Carbidopa/Levodopa (Sinemet 25/250) 0.5 tab TID@0900,1300,1700 PO 07/25/19 17:00 07/26/19 09:19 Carbidopa/Levodopa (Sinemet Cr 25/ 100) 1 tab QHS PO 07/25/19 21:00 07/25/19 21:41 Docusate Sodium (Colace) 100 mg BID PO 07/25/19 21:00 Entacapone (Comtan) 200 mg QID PO 07/25/19 17:00 07/26/19 09:19 Escitalopram Oxalate (Lexapro) 20 mg DAILY PO 07/26/19 09:00 07/26/19 09:20 Heparin Sodium (Porcine) (Heparin) 5,000 units BID SQ 07/26/19 09:00 07/26/19 09:20 Naproxen (Naprosyn) 250 mg Q12HP PRN PO PAIN OR DISCOMFORT 07/25/19 15:30 Pantoprazole Sodium (Protonix) 40 mg DAILY PO 07/26/19 09:00 07/26/19 09:19 Propranolol HCl (Inderal) 5 mg TID PO 07/25/19 21:00 07/26/19 09:19 Quetiapine Fumarate (SEROquel) 25 mg QHS PO 07/25/19 21:00 07/25/19 21:41 Senna (Senokot) 1 tab QHS PO 07/25/19 21:00 KRISTIE BUENROSTRO MD Jul 26, 2019 09:58
[2019-07-26 14:00] VITALS: BP 161/76
[2019-07-26] MEDS ORDERED: LOPERAMIDE 2 MG CAPLET PO PRN (15:00)
[2019-07-26] MEDS ORDERED: ONDANSETRON 4 MG ORAL DISINTEGRATING TAB (Q0162 PER 1MG) PO PRN (17:00)
[2019-07-26 20:00] VITALS: BP 133/74
[2019-07-26] MEDS: SINEMET**CR** 25/100 TABCR PO SCH (21:47)
[2019-07-26] MEDS: QUEtiapine FUMARATE 25 MG TAB PO SCH (22:30)
[2019-07-27 06:00] VITALS: BP 145/72
[2019-07-27 07:30] LABS: BASO % 0.7 % (0.0-1.0); EOS # 0.2 10^3/uL (0.0-0.5); EOS % 4.6 % (0.0-3.0); HEMATOCRIT 34.1 % (42.0-52.0); HEMOGLOBIN 11.1 g/dl (13.5-17.5); LYMPH % 23.7 % (24.0-44.0); MEAN CORPUSCULAR HEMOGLOBIN 29.9 pg (27.0-33.0); MEAN CORPUSCULAR HGB CONC 32.6 g/dl (32.0-36.5); MEAN CORPUSCULAR VOLUME 91.9 fl (80.0-96.0); MONO # 0.4 10^3/uL (0.0-0.8); MONO % 9.9 % (0.0-5.0); NEUTROPHILS # 2.6 10^3/uL (1.5-8.5); NEUTROPHILS % 60.6 % (36.0-66.0); PLATELET COUNT, AUTOMATED 281 10^3/uL (150-450); RED BLOOD COUNT 3.71 10^6/uL (4.30-6.10); WHITE BLOOD COUNT 4.4 10^3/uL (4.0-10.0)
[2019-07-27 07:58] LABS: BLOOD UREA NITROGEN 22 MG/DL (7-18); CALCIUM LEVEL 9.3 MG/DL (8.8-10.2); CARBON DIOXIDE LEVEL 26 MEQ/L (21-32); CHLORIDE LEVEL 109 MEQ/L (98-107); CREATININE FOR GFR 1.14 MG/DL (0.70-1.30); GLOMERULAR FILTRATION RATE > 60.0 (>35); GLUCOSE, FASTING 97 MG/DL (70-100); POTASSIUM SERUM 4.1 MEQ/L (3.5-5.1); SODIUM LEVEL 141 MEQ/L (136-145)
[2019-07-27] MEDS: ESCITALOPRAM OXALATE 10 MG TAB (LEXAPRO) PO SCH (08:17)
[2019-07-27] MEDS: PROPRANOLOL 10 MG TAB PO SCH ×3 (08:17→22:24)
[2019-07-27] MEDS: HEPARIN SOD (PORCINE) 5000 UNITS/ML VIAL SQ SCH ×2 (08:17→22:16)
[2019-07-27] MEDS: SINEMET 25-250 TABLET PO SCH ×3 (08:17→16:33)
[2019-07-27] MEDS: ACETAMINOPHEN 500 MG TAB PO SCH ×3 (08:18→22:19)
[2019-07-27] MEDS: PANTOPRAZOLE 40MG TAB (PROTONIX) PO SCH (08:18)
[2019-07-27] MEDS: ENTACAPONE 200MG TABLET (COMTAN) PO SCH ×4 (08:18→22:24)
--- NOTE | 2019-07-27 10:52 | IPNPDOC ---
PM&R Progress Note DATE OF SERVICE: Jul 27, 2019 Apartment Community Assistant Manager Progress Note Subjective: Patient seen this morning asking if he can go home before Lior and that he realizes he is not walking as well with his new fracture, but that his and son will be able to help him. REVIEW OF SYSTEMS: The following is a completed review of systems and has been reviewed. Review of systems otherwise unremarkable. PAIN: Patient self reports +pelvic pain EYES: No recent vision changes EARS, NOSE, & THROAT: No throat pain, or dysphagia, or rhinorrhea CARDIOVASCULAR: Denies chest pain or palpitations PULMONARY: Denies shortness of breath GASTROINTESTINAL: Denies constipation/diarrhea GENITOURINARY:+dysuria MUSCULOSKELETAL: pelvic fracture NEUROLOGICAL:+Parkinson HEMATOLOGICAL: difficult to assess SKIN: denies rash PSYCHIATRIC: + confused (improving) All other review of systems found to be negative. PHYSICAL EXAMINATION: VITAL SIGNS: Please see below. GENERAL: Pleasant and cooperative. No acute distress. thin HEENT: PERRL. Extraocular movements intact. Clear conjunctiva CARDIOVASCULAR: Regular rate and rhythm. No murmurs, rubs, or gallops LUNGS: Clear to auscultation bilaterally. No wheezes. No rhonchi ABDOMEN: Soft, nontender, nondistended. Positive bowel sounds. Normal active bowel sounds NEUROLOGICAL: disoriented to place and time, able to identify himself Cranial nerves II through XII grossly intact. Sensation grossly intact in all 4 limbs EXTREMITIES: 5\5 strength bilateral upper extremities. 5\5 strength right lower extremity. 5/5 strength in left lower extremity. ASSESSMENT:84-year-old M with past medical history of Parkinson's who presents status post fall with pelvic fractures PLAN: 1. Rehab- PT- advance gait training, consider LSVT Big program, fall recovery- ambulating with RW OT- advance ADLs, maintain ROM/stretch/strengthen bilat UE FLAME BRAZING MACHINE OPERATOR ordered for possible dysphagia and cog eval 2. Neuro: parkinsons c/u Sinemet and Entacapone- parkinson's with gait impairment, symptoms exacerbated in setting of pelvic fracture -delirium worse at night- c/u Seroquel -agitation-c/u propranolol -f/u with neuro upon d/c 3. Ortho: s/p fall with left superior/inferior rami and sacral fracture, WBAT, ortho consulted 4. Cardiac: recent ECHO with grade 1 diastolic CHF otherwise no known cardiac hx- medicine consulted to assist - fluid restrict 1800cc 5. Resp: encourage incentive spirometry, monitor for infection 6. GI ppx: protonix 7. DVT ppx: heparin and TEDs 8. : monitor PVRs, UA negative 9. Nutrition: c/u high caloric diet 9. Dispo: TBD Allergies Coded Allergies: No Known Allergies (Unverified , 10/20/18) Vital Signs Vital Signs Date Time Temp Pulse Resp B/P (MAP) Pulse Ox O2 Delivery O2 Flow Rate FiO2 07/27/19 08:17 80 145/72 07/27/19 06:00 98.0 18 95 Room Air Laboratory Data CBC/BMP Laboratory Tests 07/27/19 07:14 Labs 24H Laboratory Tests 2 07/27/19 07:14: Immature Granulocyte % (Auto) 0.5, Neutrophils (%) (Auto) 60.6, Lymphocytes (%) (Auto) 23.7L, Monocytes (%) (Auto) 9.9H, Eosinophils (%) (Auto) 4.6H, Basophils (%) (Auto) 0.7, Neutrophils # (Auto) 2.6, Lymphocytes # (Auto) 1.0L, Monocytes # (Auto) 0.4, Eosinophils # (Auto) 0.2, Basophils # (Auto) 0.0, Nucleated Red Blood Cells % (auto) 0.0, Anion Gap 6L, Glomerular Filtration Rate > 60.0, Calcium Level 9.3 Current Medications Current Medications Current Medications Medications (Trade) Dose Ordered Sig/Blossom Route PRN Reason Start Time Stop Time Status Last Admin Dose Admin Acetaminophen (Tylenol Tab) 1,000 mg TID PO 07/25/19 21:00 07/27/19 08:18 Alprazolam (Xanax) 0.25 mg TID PRN PO ANXIETY 07/25/19 15:30 07/26/19 17:09 Carbidopa/Levodopa (Sinemet 25/250) 0.5 tab TID@0900,1300,1700 PO 07/25/19 17:00 07/27/19 08:17 Carbidopa/Levodopa (Sinemet Cr 25/ 100) 1 tab QHS PO 07/25/19 21:00 07/26/19 21:47 Docusate Sodium (Colace) 100 mg BID PO 07/25/19 21:00 07/26/19 14:49 DC Entacapone (Comtan) 200 mg QID PO 07/25/19 17:00 07/27/19 08:18 Escitalopram Oxalate (Lexapro) 20 mg DAILY PO 07/26/19 09:00 07/27/19 08:17 Heparin Sodium (Porcine) (Heparin) 5,000 units BID SQ 07/26/19 09:00 07/27/19 08:17 Loperamide HCl (Imodium) 2 mg ASDIRECTED PRN PO DIARRHEA 07/26/19 15:00 Naproxen (Naprosyn) 250 mg Q12HP PRN PO PAIN OR DISCOMFORT 07/25/19 15:30 Ondansetron HCl (Zofran Odt) 4 mg Q6HP PRN PO NAUSEA OR VOMITING 07/26/19 17:00 07/26/19 17:09 Pantoprazole Sodium (Protonix) 40 mg DAILY PO 07/26/19 09:00 07/27/19 08:18 Propranolol HCl (Inderal) 5 mg TID PO 07/25/19 21:00 07/27/19 08:17 Quetiapine Fumarate (SEROquel) 25 mg QHS PO 07/25/19 21:00 07/26/19 22:30 Senna (Senokot) 1 tab QHS PO 07/25/19 21:00 07/26/19 14:49 KRISTIE JOYCE MD Jul 27, 2019 10:52
[2019-07-27 14:00] VITALS: BP 132/67
[2019-07-27 20:00] VITALS: BP 134/85
[2019-07-27] MEDS: NAPROXEN 250 MG TAB PO PRN (22:18)
[2019-07-27] MEDS: ALPRAZolam 0.25 MG TAB PO SCH (22:19)
[2019-07-27] MEDS: SINEMET**CR** 25/100 TABCR PO SCH (22:23)
[2019-07-27] MEDS: QUEtiapine FUMARATE 25 MG TAB PO SCH (22:23)
[2019-07-28 06:00] VITALS: BP 150/74
[2019-07-28] MEDS: ENTACAPONE 200MG TABLET (COMTAN) PO SCH ×4 (09:32→20:08)
[2019-07-28] MEDS: SINEMET 25-250 TABLET PO SCH ×3 (09:33→17:49)
[2019-07-28] MEDS: ALPRAZolam 0.25 MG TAB PO SCH ×3 (09:33→20:07)
[2019-07-28] MEDS: PROPRANOLOL 10 MG TAB PO SCH ×3 (09:33→20:08)
[2019-07-28] MEDS: PANTOPRAZOLE 40MG TAB (PROTONIX) PO SCH (09:33)
[2019-07-28] MEDS: ESCITALOPRAM OXALATE 10 MG TAB (LEXAPRO) PO SCH (09:33)
[2019-07-28] MEDS: HEPARIN SOD (PORCINE) 5000 UNITS/ML VIAL SQ SCH ×2 (09:34→20:07)
[2019-07-28] MEDS: ACETAMINOPHEN 500 MG TAB PO SCH ×3 (09:45→20:08)
--- NOTE | 2019-07-28 10:16 | IPNPDOC ---
PM&R Progress Note DATE OF SERVICE: Jul 28, 2019 Pediatric Care Coordinator Progress Note Subjective: Patient seen with who has agreed to family training with a goal of getting patient home by Lior. REVIEW OF SYSTEMS: The following is a completed review of systems and has been reviewed. Review of systems otherwise unremarkable. PAIN: Patient self reports +pelvic pain EYES: No recent vision changes EARS, NOSE, & THROAT: No throat pain, or dysphagia, or rhinorrhea CARDIOVASCULAR: Denies chest pain or palpitations PULMONARY: Denies shortness of breath GASTROINTESTINAL: Denies constipation/diarrhea GENITOURINARY:+dysuria (improved) MUSCULOSKELETAL: pelvic fracture NEUROLOGICAL:+Parkinson HEMATOLOGICAL: denies easy bruising SKIN: denies rash PSYCHIATRIC: + confused (improving) All other review of systems found to be negative. PHYSICAL EXAMINATION: VITAL SIGNS: Please see below. GENERAL: Pleasant and cooperative. No acute distress. thin HEENT: PERRL. Extraocular movements intact. Clear conjunctiva CARDIOVASCULAR: Regular rate and rhythm. No murmurs, rubs, or gallops LUNGS: Clear to auscultation bilaterally. No wheezes. No rhonchi ABDOMEN: Soft, nontender, nondistended. Positive bowel sounds. Normal active bowel sounds NEUROLOGICAL: disoriented to place and time, able to identify himself Cranial nerves II through XII grossly intact. Sensation grossly intact in all 4 limbs EXTREMITIES: 5\5 strength bilateral upper extremities. 5\5 strength right lower extremity. 5/5 strength in left lower extremity. ASSESSMENT:84-year-old M with past medical history of Parkinson's who presents status post fall with pelvic fractures PLAN: 1. Rehab- PT- advance gait training, consider LSVT Big program, fall recovery- ambulating with RW OT- advance ADLs, maintain ROM/stretch/strengthen bilat UE LICENSE ISSUER ordered for possible dysphagia and cog eval- level 2 diet with supervision 2. Neuro: parkinsons c/u Sinemet and Entacapone- parkinson's with gait impairment, symptoms exacerbated in setting of pelvic fracture -delirium worse at night- c/u Seroquel -agitation-c/u propranolol increased to 10mg TID -changed Xanax from prn to standing at half of his home dose to assist with daytime anxiety, c/u 0.25 TID -f/u with neuro upon d/c 3. Ortho: s/p fall with left superior/inferior rami and sacral fracture, WBAT, ortho consulted 4. Cardiac: recent ECHO with grade 1 diastolic CHF otherwise no known cardiac hx- medicine consulted to assist - fluid restrict 1800cc 5. Resp: encourage incentive spirometry, monitor for infection 6. GI ppx: protonix 7. DVT ppx: heparin and TEDs 8. : monitor PVRs, UA negative 9. Nutrition: c/u high caloric diet 9. Dispo: 08-02-19 to home, progressing towards goals Allergies Coded Allergies: No Known Allergies (Unverified , 10/20/18) Vital Signs Vital Signs Date Time Temp Pulse Resp B/P (MAP) Pulse Ox O2 Delivery O2 Flow Rate FiO2 07/28/19 09:33 85 137/66 07/28/19 06:00 98.5 18 98 Room Air Current Medications Current Medications Current Medications Medications (Trade) Dose Ordered Sig/Blossom Route PRN Reason Start Time Stop Time Status Last Admin Dose Admin Acetaminophen (Tylenol Tab) 1,000 mg TID PO 07/25/19 21:00 07/28/19 09:45 Alprazolam (Xanax) 0.25 mg TID PO 07/27/19 21:00 07/28/19 09:33 Alprazolam (Xanax) 0.25 mg TID PRN PO ANXIETY 07/25/19 15:30 07/27/19 16:13 DC 07/26/19 17:09 Carbidopa/Levodopa (Sinemet 25/250) 0.5 tab TID@0900,1300,1700 PO 07/25/19 17:00 07/28/19 09:33 Carbidopa/Levodopa (Sinemet Cr 25/ 100) 1 tab QHS PO 07/25/19 21:00 07/27/19 22:23 Docusate Sodium (Colace) 100 mg BID PO 07/25/19 21:00 07/26/19 14:49 DC Entacapone (Comtan) 200 mg QID PO 07/25/19 17:00 07/28/19 09:32 Escitalopram Oxalate (Lexapro) 20 mg DAILY PO 07/26/19 09:00 07/28/19 09:33 Heparin Sodium (Porcine) (Heparin) 5,000 units BID SQ 07/26/19 09:00 07/28/19 09:34 Loperamide HCl (Imodium) 2 mg ASDIRECTED PRN PO DIARRHEA 07/26/19 15:00 Naproxen (Naprosyn) 250 mg Q12HP PRN PO PAIN OR DISCOMFORT 07/25/19 15:30 07/27/19 22:18 Ondansetron HCl (Zofran Odt) 4 mg Q6HP PRN PO NAUSEA OR VOMITING 07/26/19 17:00 07/26/19 17:09 Pantoprazole Sodium (Protonix) 40 mg DAILY PO 07/26/19 09:00 07/28/19 09:33 Propranolol HCl (Inderal) 5 mg TID PO 07/25/19 21:00 07/27/19 16:13 DC 07/27/19 15:00 Propranolol HCl (Inderal) 10 mg TID PO 07/27/19 21:00 07/28/19 09:33 Quetiapine Fumarate (SEROquel) 25 mg QHS PO 07/25/19 21:00 07/27/19 22:23 Senna (Senokot) 1 tab QHS PO 07/25/19 21:00 07/26/19 14:49 KRISTIE JOYCE MD Jul 28, 2019 10:16
[2019-07-28 14:00] VITALS: BP 142/68
[2019-07-28 20:00] VITALS: BP 138/73
[2019-07-28] MEDS: SINEMET**CR** 25/100 TABCR PO SCH (20:08)
[2019-07-28] MEDS: QUEtiapine FUMARATE 25 MG TAB PO SCH (20:08)
[2019-07-29 06:00] VITALS: BP 151/71
[2019-07-29 06:46] LABS: HEMATOCRIT 32.7 % (42.0-52.0); HEMOGLOBIN 10.7 g/dl (13.5-17.5); MEAN CORPUSCULAR HEMOGLOBIN 30.1 pg (27.0-33.0); MEAN CORPUSCULAR HGB CONC 32.7 g/dl (32.0-36.5); MEAN CORPUSCULAR VOLUME 91.9 fl (80.0-96.0); PLATELET COUNT, AUTOMATED 301 10^3/uL (150-450); RED BLOOD COUNT 3.56 10^6/uL (4.30-6.10); WHITE BLOOD COUNT 5.1 10^3/uL (4.0-10.0)
[2019-07-29] MEDS: ALPRAZolam 0.25 MG TAB PO SCH ×3 (08:04→21:56)
[2019-07-29] MEDS: ENTACAPONE 200MG TABLET (COMTAN) PO SCH ×4 (08:04→21:57)
[2019-07-29] MEDS: ESCITALOPRAM OXALATE 10 MG TAB (LEXAPRO) PO SCH (08:04)
[2019-07-29] MEDS: HEPARIN SOD (PORCINE) 5000 UNITS/ML VIAL SQ SCH ×2 (08:04→21:56)
[2019-07-29] MEDS: PANTOPRAZOLE 40MG TAB (PROTONIX) PO SCH (08:05)
[2019-07-29] MEDS: ACETAMINOPHEN 500 MG TAB PO SCH ×3 (08:05→21:56)
[2019-07-29] MEDS: PROPRANOLOL 10 MG TAB PO SCH ×3 (08:09→21:00)
[2019-07-29] MEDS ORDERED: PILL CUTTER 1 EACH XX PRN (08:15)
[2019-07-29] MEDS: SINEMET 25-250 TABLET PO SCH ×3 (09:05→16:13)
[2019-07-29] MEDS: oxyCODONE 5MG TAB PO SCH ×3 (09:08→16:14)
--- NOTE | 2019-07-29 10:02 | IPNPDOC ---
PM&R Progress Note DATE OF SERVICE: Jul 29, 2019 Teletype Mechanic Progress Note Subjective: Patient complaining of a constant ache in his pelvis and would like something stronger for pain. he ia also worried about going home with his who he re ports is getting older too and less able to help him. He is interested in day- hab at [facility] if he is eligible. REVIEW OF SYSTEMS: The following is a completed review of systems and has been reviewed. Review of systems otherwise unremarkable. PAIN: Patient self reports +pelvic pain EYES: No recent vision changes EARS, NOSE, & THROAT: No throat pain, or dysphagia, or rhinorrhea CARDIOVASCULAR: Denies chest pain or palpitations PULMONARY: Denies shortness of breath GASTROINTESTINAL: Denies constipation/diarrhea GENITOURINARY:+dysuria (improved) MUSCULOSKELETAL: pelvic fracture NEUROLOGICAL:+Parkinson HEMATOLOGICAL: denies easy bruising SKIN: denies rash PSYCHIATRIC: + confused (improving) All other review of systems found to be negative. PHYSICAL EXAMINATION: VITAL SIGNS: Please see below. GENERAL: Pleasant and cooperative. No acute distress. thin HEENT: PERRL. Extraocular movements intact. Clear conjunctiva CARDIOVASCULAR: Regular rate and rhythm. No murmurs, rubs, or gallops LUNGS: Clear to auscultation bilaterally. No wheezes. No rhonchi ABDOMEN: Soft, nontender, nondistended. Positive bowel sounds. Normal active bowel sounds NEUROLOGICAL: disoriented to place and time, able to identify himself Cranial nerves II through XII grossly intact. Sensation grossly intact in all 4 limbs EXTREMITIES: 5\5 strength bilateral upper extremities. 5\5 strength right lower extremity. 5/5 strength in left lower extremity. ASSESSMENT:84-year-old M with past medical history of Parkinson's who presents status post fall with pelvic fractures PLAN: 1. Rehab- PT- advance gait training, consider LSVT Big program, fall recovery- ambulating with RW OT- advance ADLs, maintain ROM/stretch/strengthen bilat UE HEARING THERAPIST ordered for possible dysphagia and cog eval- level 2 diet with supervision 2. Neuro: parkinsons c/u Sinemet and Entacapone- parkinson's with gait impairment, symptoms exacerbated in setting of pelvic fracture -delirium worse at night- c/u Seroquel -agitation-c/u propranolol increased to 10mg TID -changed Xanax from prn to standing at half of his home dose to assist with daytime anxiety, c/u 0.25 TID -f/u with neuro upon d/c 3. Ortho: s/p fall with left superior/inferior rami and sacral fracture, WBAT, ortho consulted 4. Cardiac: recent ECHO with grade 1 diastolic CHF otherwise no known cardiac hx- medicine consulted to assist - fluid restrict 1800cc 5. Resp: encourage incentive spirometry, monitor for infection 6. GI ppx: protonix 7. DVT ppx: heparin and TEDs 8. : monitor PVRs, UA negative 9. Nutrition: c/u high caloric diet 10. Pain- c/u tylenol standing, will add standing oxycodone 2.5mg TID to held for sedation , monitor closely while on Xanax as increases risk of falls 9. Dispo: 08-02-19 to home, progressing towards goals Allergies Coded Allergies: No Known Allergies (Unverified , 10/20/18) Vital Signs Vital Signs Date Time Temp Pulse Resp B/P (MAP) Pulse Ox O2 Delivery O2 Flow Rate FiO2 07/29/19 09:08 16 07/29/19 08:09 91 136/64 07/29/19 06:00 97.6 98 Room Air Laboratory Data CBC/BMP Laboratory Tests 07/29/19 06:33 Labs 24H Laboratory Tests 2 07/29/19 06:33: Nucleated Red Blood Cells % (auto) 0.0 Current Medications Current Medications Current Medications Medications (Trade) Dose Ordered Sig/Blossom Route PRN Reason Start Time Stop Time Status Last Admin Dose Admin Acetaminophen (Tylenol Tab) 1,000 mg TID PO 07/25/19 21:00 07/29/19 08:05 Alprazolam (Xanax) 0.25 mg TID PO 07/27/19 21:00 07/29/19 08:04 Alprazolam (Xanax) 0.25 mg TID PRN PO ANXIETY 07/25/19 15:30 07/27/19 16:13 DC 07/26/19 17:09 Carbidopa/Levodopa (Sinemet 25/250) 0.5 tab TID@0900,1300,1700 PO 07/25/19 17:00 07/29/19 09:05 Carbidopa/Levodopa (Sinemet Cr 25/ 100) 1 tab QHS PO 07/25/19 21:00 07/28/19 20:08 Docusate Sodium (Colace) 100 mg BID PO 07/25/19 21:00 07/26/19 14:49 DC Entacapone (Comtan) 200 mg QID PO 07/25/19 17:00 07/29/19 08:04 Escitalopram Oxalate (Lexapro) 20 mg DAILY PO 07/26/19 09:00 07/29/19 08:04 Heparin Sodium (Porcine) (Heparin) 5,000 units BID SQ 07/26/19 09:00 07/29/19 08:04 Loperamide HCl (Imodium) 2 mg ASDIRECTED PRN PO DIARRHEA 07/26/19 15:00 Naproxen (Naprosyn) 250 mg Q12HP PRN PO PAIN OR DISCOMFORT 07/25/19 15:30 07/27/19 22:18 Ondansetron HCl (Zofran Odt) 4 mg Q6HP PRN PO NAUSEA OR VOMITING 07/26/19 17:00 07/26/19 17:09 Oxycodone HCl (Roxicodone, Oxyir) 2.5 mg TID@0800,1200,1600 PO 07/29/19 08:00 07/29/19 09:08 Pantoprazole Sodium (Protonix) 40 mg DAILY PO 07/26/19 09:00 07/29/19 08:05 Propranolol HCl (Inderal) 5 mg TID PO 07/25/19 21:00 07/27/19 16:13 DC 07/27/19 15:00 Propranolol HCl (Inderal) 10 mg TID PO 07/27/19 21:00 07/29/19 08:09 Quetiapine Fumarate (SEROquel) 25 mg QHS PO 07/25/19 21:00 07/28/19 20:08 Senna (Senokot) 1 tab QHS PO 07/25/19 21:00 07/26/19 14:49 KRISTIE JOYCE MD Jul 29, 2019 10:02
[2019-07-29 16:08] VITALS: BP 151/70
[2019-07-29 20:30] VITALS: BP 132/61
[2019-07-29] MEDS: QUEtiapine FUMARATE 25 MG TAB PO SCH (21:55)
[2019-07-29] MEDS: SINEMET**CR** 25/100 TABCR PO SCH (22:00)
[2019-07-30] MEDS: NAPROXEN 250 MG TAB PO PRN (04:39)
[2019-07-30 05:49] VITALS: BP 129/62
[2019-07-30] MEDS: ESCITALOPRAM OXALATE 10 MG TAB (LEXAPRO) PO SCH (07:44)
[2019-07-30] MEDS: ALPRAZolam 0.25 MG TAB PO SCH ×3 (07:44→21:20)
[2019-07-30] MEDS: HEPARIN SOD (PORCINE) 5000 UNITS/ML VIAL SQ SCH ×2 (07:44→21:23)
[2019-07-30] MEDS: ENTACAPONE 200MG TABLET (COMTAN) PO SCH ×4 (07:45→21:20)
[2019-07-30] MEDS: ACETAMINOPHEN 500 MG TAB PO SCH ×3 (07:45→21:22)
[2019-07-30] MEDS: PANTOPRAZOLE 40MG TAB (PROTONIX) PO SCH (07:45)
[2019-07-30] MEDS: SINEMET 25-250 TABLET PO SCH ×3 (07:46→16:00)
[2019-07-30] MEDS: oxyCODONE 5MG TAB PO SCH ×3 (07:46→16:00)
[2019-07-30] MEDS: PROPRANOLOL 10 MG TAB PO SCH ×3 (07:46→21:22)
--- NOTE | 2019-07-30 08:35 | IPNPDOC ---
Text Note Date of Service The patient was seen on 07/30/19. NOTE Patient was seen and examined. Sitting comfortably in the bed. No overnight events. PHYSICAL EXAMINATION: VITAL SIGNS: See below GENERAL APPEARANCE: elderly, frail HEENT: NC/AT, EOMI, bitemporal wasting CARDIOVASCULAR: +S1S2, systolic murmur LUNGS: CTA B/L ABDOMEN: soft, NT, +BS EXTREMITIES: no edema NEUROLOGICAL: no gross focal deficits PSYCHIATRIC: oriented to person, oriented generally to place ([place]) LABORATORY DATA: See below. Assessment and plan 84 yo male with PMHx Parkinson's disease for falls, found to have pubic rami fracture, currently being admitted in acute rehabilitation unit and we are following as a medical consult 1: Falls with pubic rami fracture: evaluated by orthopedics and they recommended mobilization as tolerated with physical therapy and assistive devices. As per Ortho this fracture should heal over time and his pain will improve over the course the next several days significantly. Followup could be in there office in 3 or 4 weeks. Cont rehabilitation . He'll be continued on all the home medications and naproxen for pain control when necessary. 2: Parkinsons : continue home medications 3. Debility. Getting physical therapy in ARU 4. Grade 1 diastolic dysfunction: recent ECHO with grade 1 diastolic CHF . No signs of full volume overload. Fluid restrict 1800cc Xanax 0.25 for anxiety and serequel for High-calorie diet DVT prophylaxis Fall precautions VS,Fishbone, I+O VS, Fishbone, I+O Vital Signs Date Time Temp Pulse Resp B/P (MAP) Pulse Ox O2 Delivery O2 Flow Rate FiO2 07/30/19 07:46 16 07/30/19 07:46 65 129/62 07/30/19 05:49 98.9 99 Room Air I&O- Last 24 Hours up to 6 AM 07/30/19 06:00 Intake Total 480 ml Output Total 100 ml Balance 380 ml GERTRUDE DUEÑAS MD Jul 30, 2019 08:35
[2019-07-30 14:00] VITALS: BP 106/58
[2019-07-30 19:49] VITALS: BP 117/58
[2019-07-30] MEDS: SINEMET**CR** 25/100 TABCR PO SCH (21:20)
[2019-07-30] MEDS: QUEtiapine FUMARATE 25 MG TAB PO SCH (21:20)
[2019-07-31 06:00] VITALS: BP 158/77
[2019-07-31] MEDS: ENTACAPONE 200MG TABLET (COMTAN) PO SCH ×4 (08:22→20:04)
[2019-07-31] MEDS: oxyCODONE 5MG TAB PO SCH ×3 (08:22→16:42)
[2019-07-31] MEDS: PROPRANOLOL 10 MG TAB PO SCH ×3 (08:22→20:05)
[2019-07-31] MEDS: ESCITALOPRAM OXALATE 10 MG TAB (LEXAPRO) PO SCH (08:22)
[2019-07-31] MEDS: ALPRAZolam 0.25 MG TAB PO SCH ×3 (08:22→20:03)
[2019-07-31] MEDS: SINEMET 25-250 TABLET PO SCH ×3 (08:22→16:42)
[2019-07-31] MEDS: ACETAMINOPHEN 500 MG TAB PO SCH ×3 (08:23→20:04)
[2019-07-31] MEDS: HEPARIN SOD (PORCINE) 5000 UNITS/ML VIAL SQ SCH ×2 (08:23→20:04)
[2019-07-31] MEDS: PANTOPRAZOLE 40MG TAB (PROTONIX) PO SCH (08:23)
[2019-07-31 14:00] VITALS: BP 151/73
[2019-07-31 20:00] VITALS: BP 111/56
[2019-07-31] MEDS: SINEMET**CR** 25/100 TABCR PO SCH (20:04)
[2019-07-31] MEDS: QUEtiapine FUMARATE 25 MG TAB PO SCH (20:04)
[2019-08-01 06:00] VITALS: BP 141/65
[2019-08-01 06:48] LABS: BASO % 0.4 % (0.0-1.0); EOS # 0.3 10^3/uL (0.0-0.5); EOS % 6.6 % (0.0-3.0); HEMATOCRIT 32.6 % (42.0-52.0); HEMOGLOBIN 10.5 g/dl (13.5-17.5); LYMPH % 22.5 % (24.0-44.0); MEAN CORPUSCULAR HGB CONC 32.2 g/dl (32.0-36.5); MEAN CORPUSCULAR VOLUME 93.1 fl (80.0-96.0); MONO # 0.4 10^3/uL (0.0-0.8); MONO % 8.1 % (0.0-5.0); NEUTROPHILS # 2.8 10^3/uL (1.5-8.5); PLATELET COUNT, AUTOMATED 333 10^3/uL (150-450); WHITE BLOOD COUNT 4.6 10^3/uL (4.0-10.0)
[2019-08-01] MEDS: oxyCODONE 5MG TAB PO SCH ×3 (07:03→17:37)
[2019-08-01 07:08] LABS: BLOOD UREA NITROGEN 27 MG/DL (7-18); CALCIUM LEVEL 8.8 MG/DL (8.8-10.2); CARBON DIOXIDE LEVEL 23 MEQ/L (21-32); CHLORIDE LEVEL 111 MEQ/L (98-107); CREATININE FOR GFR 1.12 MG/DL (0.70-1.30); GLOMERULAR FILTRATION RATE > 60.0 (>35); GLUCOSE, FASTING 93 MG/DL (70-100); POTASSIUM SERUM 4.2 MEQ/L (3.5-5.1); SODIUM LEVEL 140 MEQ/L (136-145)
[2019-08-01] MEDS: PANTOPRAZOLE 40MG TAB (PROTONIX) PO SCH (09:19)
[2019-08-01] MEDS: SINEMET 25-250 TABLET PO SCH ×3 (09:19→17:38)
[2019-08-01] MEDS: ENTACAPONE 200MG TABLET (COMTAN) PO SCH ×4 (09:19→21:37)
[2019-08-01] MEDS: ALPRAZolam 0.25 MG TAB PO SCH ×3 (09:19→21:37)
[2019-08-01] MEDS: HEPARIN SOD (PORCINE) 5000 UNITS/ML VIAL SQ SCH ×2 (09:19→21:41)
[2019-08-01] MEDS: PROPRANOLOL 10 MG TAB PO SCH ×3 (09:20→21:00)
[2019-08-01] MEDS: ESCITALOPRAM OXALATE 10 MG TAB (LEXAPRO) PO SCH (09:20)
[2019-08-01] MEDS: ACETAMINOPHEN 500 MG TAB PO SCH ×3 (09:20→21:37)
--- NOTE | 2019-08-01 13:42 | IPNPDOC ---
Date Seen The patient was seen on 08/01/19. Progress Note SUBJECTIVE: Patient reports continued pain in his groin and back from fall. No significant changes from prior. 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 Discharged delay until tomorrow. OBJECTIVE PHYSICAL EXAMINATION: VITAL SIGNS: Please see below. General: Elderly, weak and frail Eyes: Normal sclera, EOMI HENT: Atraumatic Cardiovascular: Normal rate Pulmonary: Clear to auscultation b/l GI: Soft, nontender, nondistended Skin: Warm and dry Neuro: CN grossly intact. No focal deficits. Generalized weakness Psych: oriented x 3 LABORATORY DATA, IMAGING STUDIES, MICROBIOLOGY: Please see below. DVT prophylaxis ordered?: HSQ ASSESSMENT AND PLAN: 1. Pubic rami fracture s/p Fall - Evaluated by ortho, recommended mobilization as tolerated with PT. - Expect to have improvement in discomfort slowly with time. - c/w PT while in patient. - Pain control. 2. Parkinsons - c/w home med. 3. HFpEF - Fluid restriction to 1800 cc/day. - monitor volume status. DISPOSITION: Home likely tomorrow. VS, [facility]/I&O Vital Signs Date Time Temp Pulse Resp B/P (MAP) Pulse Ox O2 Delivery O2 Flow Rate FiO2 08/01/19 12:41 16 08/01/19 09:20 67 141/65 08/01/19 07:03 Room Air 08/01/19 06:00 98.2 96 I&O- Last 24 Hours up to 6 AM0 08/01/19 05:59 Intake Total 910 ml Balance 910 ml Laboratory Data 24H LABS Laboratory Tests 2 08/01/19 06:35: Immature Granulocyte % (Auto) 0.4, Neutrophils (%) (Auto) 62.0, Lymphocytes (%) (Auto) 22.5L, Monocytes (%) (Auto) 8.1H, Eosinophils (%) (Auto) 6.6H, Basophils (%) (Auto) 0.4, Neutrophils # (Auto) 2.8, Lymphocytes # (Auto) 1.0L, Monocytes # (Auto) 0.4, Eosinophils # (Auto) 0.3, Basophils # (Auto) 0.0, Nucleated Red Blood Cells % (auto) 0.0, Anion Gap 6L, Glomerular Filtration Rate > 60.0, Calcium Level 8.8 CBC/BMP Laboratory Tests 08/01/19 06:35 TAD MESA MD Aug 01, 2019 13:42
[2019-08-01] MEDS: NAPROXEN 250 MG TAB PO PRN (13:58)
[2019-08-01 14:00] VITALS: BP 141/64
[2019-08-01 20:00] VITALS: BP 138/62
[2019-08-01] MEDS: SINEMET**CR** 25/100 TABCR PO SCH (21:37)
[2019-08-01] MEDS: QUEtiapine FUMARATE 25 MG TAB PO SCH (21:41)
[2019-08-02 06:00] VITALS: BP 134/68
[2019-08-02] MEDS: oxyCODONE 5MG TAB PO SCH (08:00)
[2019-08-02] MEDS: HEPARIN SOD (PORCINE) 5000 UNITS/ML VIAL SQ SCH (08:55)
[2019-08-02] MEDS: ESCITALOPRAM OXALATE 10 MG TAB (LEXAPRO) PO SCH (08:56)
[2019-08-02] MEDS: ENTACAPONE 200MG TABLET (COMTAN) PO SCH (08:56)
[2019-08-02] MEDS: NAPROXEN 250 MG TAB PO PRN (08:56)
[2019-08-02] MEDS: SINEMET 25-250 TABLET PO SCH (08:57)
[2019-08-02] MEDS: PANTOPRAZOLE 40MG TAB (PROTONIX) PO SCH (08:57)
[2019-08-02] MEDS: ALPRAZolam 0.25 MG TAB PO SCH (08:57)
[2019-08-02 08:58] VITALS: BP 134/68
[2019-08-02] MEDS: PROPRANOLOL 10 MG TAB PO SCH (08:58)
[2019-08-02] MEDS: ACETAMINOPHEN 500 MG TAB PO SCH (09:01)
[2019-08-02] MEDS ORDERED: OXYC-517 PO (09:13)
--- NOTE | 2019-08-04 17:23 | PMRDS ---
DATE OF ADMISSION: 07/25/2019 DATE OF DISCHARGE: 08/02/2019 CHIEF COMPLAINT/DISCHARGE DIAGNOSIS: Parkinson's with acetabular fracture. HISTORY OF PRESENT ILLNESS: An 84-year-old male with a past medical history of Parkinson's, low back pain, who fell at home with unknown loss of consciousness (LOC) and presented to [facility] Emergency Department (ED) on 07/22/2019 with difficulty walking. He was placed on telemetry, and pelvic x-ray revealed "nondisplaced fracture of the superior pubic rami at the acetabular margin. Probable inferior pubic ramus fracture and left lateral sacral fracture. Diffuse osteopenia. No femur fracture seen." CT pelvis showed "Two incomplete fractures involving the left superior pubic ramus, one at the base near the acetabulum affecting the superior cortex, and the other is involving the superior cortex more distally, just proximal to the pubic symphysis. The left inferior pubic rami is also fractured. In the inferior-anterior mid left sacrum here is a slight cortical irregularity." He was evaluated by orthopedics, who did not recommend surgical intervention and to be made weightbearing as tolerated. The patient had episodes of delirium with sundowning. He was evaluated by therapy and found to be below his prior level of function and mobility in activities of daily living (ADLs) and deemed medically appropriate for discharge to acute rehabilitation unit (ARU) on 07/25/2019. PAST MEDICAL HISTORY: As per history of present illness (HPI). HOSPITAL COURSE: The patient was admitted and enrolled in a comprehensive, occupational therapy (OT), physical therapy (PT), speech/language pathology program. He received 24-hour nursing supervision, and weekly team meetings were held to discuss his progress. The patient was maintained on his Sinemet and entacapone Parkinson's medications and Seroquel at night for his delirium. His Xanax was halved in dosing and changed from as needed to three times a day standing to help alleviate daytime agitation and anxiety. The patient's pain was controlled with low-dose oxycodone. Initially the patient reported dysuria; however, urinalysis (UA) was negative, and patient did not show signs of urinary retention, however, did have incontinence. The patient was started on a high-calorie diet and made modest but significant improvements in therapy was deemed medically and functionally stable to return home with assistance from his . DISCHARGE MEDICATIONS: As per instructions. FUNCTIONAL HISTORY ON DISCHARGE: The patient was standby assist for functional transfers and for ambulation. Able to ambulate 150 feet. In occupational therapy he was modified independent for functional transfers, grooming, toileting. Thank you for this referral
== END 2019-08-02 11:10 | disposition home health service (06) | DRG 560 ==
LOC: M PM&R 14:50
PROVIDERS: ADMIT Physical Medicine & Rehabilitation; ATTEND Physical Medicine & Rehabilitation
DX: S32.512D Fracture of superior rim of left pubis, subsequent encounter for fracture with routine healing (principal); I50.32 Chronic diastolic (congestive) heart failure; F05 Delirium due to known physiological condition; S32.10XD Unspecified fracture of sacrum, subsequent encounter for fracture with routine healing; G20 Parkinson's disease; M54.5 Low back pain; R30.0 Dysuria; M85.80 Other specified disorders of bone density and structure, unspecified site; R32 Unspecified urinary incontinence; R26.89 Other abnormalities of gait and mobility; W19.XXXD Unspecified fall, subsequent encounter; Y92.9 Unspecified place or not applicable; Z79.899 Other long term (current) drug therapy